=== PATIENT | male | born 1945 | race Caucasian/White ===

== ENCOUNTER → 2023-08-04 11:18 | Outpatient (REF) | payer OTHER, MEDICARE, SELFPAY | LOC: RAD 11:18 | PROVIDERS: ATTENDING PHYSICIAN Nurse Practitioner Family; FAMILY PHYSICIAN Internal Medicine Geriatric Medicine | DX: M54.50 Low back pain, unspecified (principal) | CPT/HCPCS: 72072; 72110 ==

== ENCOUNTER → 2024-08-08 17:40 | Outpatient (REF) | payer MEDICARE, SELFPAY | LOC: MRI 3T 17:40 | PROVIDERS: ATTENDING PHYSICIAN Physical Medicine & Rehabilitation; FAMILY PHYSICIAN Internal Medicine Geriatric Medicine | DX: M54.16 Radiculopathy, lumbar region (principal) | CPT/HCPCS: 72148 ==

== ENCOUNTER 2025-01-23 15:55 | Emergency (ER) | payer MEDICARE, SELFPAY ==
[2025-01-23 16:00] VITALS: BP 140/58
[2025-01-23 16:01] VITALS: BP 140/58; BMI 25.6
[2025-01-23 17:00] VITALS: BP 144/62
--- NOTE | 2025-01-23 17:43 | ED.GENMED ---
History of Present Illness
General
Chief Complaint: Head Injury
Time Seen by Provider: 01/23/25 16:18
History of Present Illness
History of Present Illness:
79-year-old male with history of A-fib on Eliquis, hypertension, hyperlipidemia presenting after a fall. Patient reports prior to arrival he was feeling off balance and fell backward, struck his head. Patient had a similar issue on Sunday, fell,
struck his head, was seen at [facility] and had 4 eliane placed. Reports that this has been ongoing for the past several months with unclear etiology. Patient is supposed to be walking with a walker, did not have a walker prior to arrival,
which also contributed to the fall. Denies chest pain or difficulty breathing. Denies fever. Denies weakness or numbness to his extremities. Tetanus status is unknown. Notes unremarkable workup on Sunday at [facility]. He is supposed to
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 Denies additional medical complaints
Past History
Past History
ED Past Medical History: Arrthythmia (Atrial fibrillation)
ED Past Surgical History: Orthopedic (Right knee replacement)
Social History
Tobacco: Former smoker
Phy Exam
Physical Exam
Physical Exam:
General: Well-appearing, no clinical signs of dehydration, nontoxic and in no acute distress
Head; posterior midline hematoma with skin avulsion, bleeding controlled
HEENT: protecting airway
Neck: appears supple
CV: Normal heart rate, regular rhythm
Resp: No accessory muscle use, no increased work of breathing, lungs clear to auscultation bilaterally
Abd: Soft and non-distended, no tenderness to palpation
Extremities: No deformities, no swelling. Small abrasion to the left olecranon with range of motion intact
Neuro: alert, no focal neurologic deficit
: deferred
Rectal: deferred
Psych: Normal affect
Skin: Intact
Course
Orders/Labs/Results
Orders:
Orders
01/23/25 16:[address] [CT Head W/o Iv Contrast] Urgent
Comment:
Reason For Exam: head injury on eliquis
01/23/25 17:11
Electrocardiogram (*1) Stat
Reason for Study: Other
Other Reason for Exam: chest pain
EKG- Treatment ONCE
01/23/25 17:22
Complete Blood Count/With Diff Urgent
Comprehensive Metabolic Panel Urgent
Troponin I Urgent
01/23/25 17:42
Orthostatic VS- Treatment ONCE
01/23/25 17:43
Tetanus/Diphth/Acelpertussis [Adacel] 0.5 ml IM .ONCE ONE
01/23/25 19:55
Acetaminophen [Tylenol] 1,000 mg PO NOW STA
Abnormal Lab Results
01/23/25
17:22
RBC 3.59 L 10^6/uL
(4.70-6.10)
Hgb 12.5 L g/dL
(13.0-18.0)
Hct 35.7 L %
(39.0-52.0)
MCV 99.4 H fL
(80.0-94.0)
MCH 34.8 H pg
(27.0-31.0)
MPV 11.9 H fL
(7.4-10.4)
Abs Immat Gran (auto) 0.1 H 10^3/uL
(0-0.05)
Absolute Lymphs (auto) 0.9 L 10^3/uL
(1.2-3.4)
Absolute Monos (auto) 0.8 H 10^3/uL
(0.1-0.6)
Immature Gran % 1.3 H %
(0-0.5)
Lymphocytes % 11.9 L %
(20.5-51.1)
Monocytes % 10.8 H %
(1.7-9.3)
Chloride 108 H mmol/L
(98-107)
BUN 41 H mg/dl
(9-20)
ALT 74 H U/L
(0-50)
01/23/25 17:22
01/23/25 17:22
Vital Signs
Initial and Last Documented VS:
Initial Vital Signs
BP Pulse Ox
140/58 96
01/23/25 16:00 01/23/25 16:00
Last Documented Vital Signs
Temp Pulse Resp BP Pulse Ox
99 F 83 16 166/70 97
01/23/25 16:01 01/23/25 16:01 01/23/25 16:01 01/23/25 18:00 01/23/25 18:30
MDM/Problems Addressed
MDM/Problems Addressed:
79-year-old male with history of A-fib presenting to the emergency department for fall. Vital signs on arrival are normal.
On exam, patient is resting comfortably, no acute distress. Arrives with obvious head trauma. Given anticoagulation status, plan for CT head imaging. No midline spinal tenderness. Patient also has evidence of eliane to the left parietal scalp,
intact. No obvious laceration on today's injury. Wound was appropriately cleaned and irrigated, no gaping to the wound. Regarding mechanism of fall, unclear. Notes that he was off balance and then fell backward. This has been an ongoing issue
of unclear etiology. No present focal neurologic deficits. Will plan for EKG to ensure no obvious arrhythmia. Will screen with laboratory analysis to ensure normal electrolyte panel. Will also obtain orthostatics.
19:50 - Patient's labs are unremarkable and CT brain without acute intracranial abnormality. Orthostatics are negative. At this time feel stable for discharge, however with outpatient cardiology follow-up as scheduled next week. Advised that
patient always walk with a walker going forward. Return precautions discussed and patient verbalized understanding
*Pulse Oximetry
SaO2: 97
Oxygen Mode of Delivery: Room air
Patient hypoxic: no
*EKG
Interpreted by ED Provider?: Yes
EKG Intrepretation Date: 01/23/25
Interpretation: normal
Comparison EKG: no changes (08/05/14)
Heart Rate: 79
Rate: normal
Rhythm: sinus
[place]: normal axis
Interval: normal interval
QRS Pattern: normal QRS
Ischemia: no ischemia
*Critical Care Note
Total Time (30-74mins, 75-104mins- exclusive of procedures): Not Applicable
ED Attending Note
-
Portions of this chart may have been created with voice recognition software.� Occasional wrong word or��sound alike� substitutions may have occurred due to the inherent limitations of voice recognition software.
Discharge Plan
Departure
Patient Disposition: Home (Routine Discharge)
Date of Disposition: 01/23/25
Time of Disposition: 19:56
Patient with high blood pressure during this ER visit?: Yes
Condition: Good
Discharge Problem:
Contusion of scalp, Fall, Dizziness
Instructions: Contusion (DC), Minor Head Injury (DC), BLOOD PRESSURE
Prescriptions:
No Action
multivitamin [Daily Multiple] 1 EACH tablet
1 ea PO DAILY
calcium carbonate [calcium] 500 MG tablet
500 mg PO DAILY
magnesium 250 MG tablet
250 mg PO DAILY
methylphenidate HCl 36 MG tablet extended release 24hr
18 mg PO DAILY
rosuvastatin 20 MG tablet
20 mg PO DAILY
coenzyme Q10 [Co Q-10] 200 MG capsule
200 mg PO DAILY
saw palmetto 450 MG capsule
450 mg PO DAILY
omega-3 fatty acids-fish oil 1 EACH capsule
1,000 mg PO DAILY
metoprolol succinate 50 MG tablet extended release 24 hr
50 mg PO DAILY
cyanocobalamin (vitamin B-12) 1,000 MCG tablet
1,000 mcg PO DAILY
lisinopril 5 MG tablet
5 mg PO DAILY
sennosides [senna] 1 TABLET tablet
2 tab PO BID Qty: 0 0RF
oxycodone 5 MG tablet
1 - 2 tab PO Q4HPRN PRN (Reason: pain) Qty: 90 0RF
warfarin [Jantoven] 5 MG tablet
5 mg PO DAILY Qty: 50 0RF
Rx Instructions:
take 7.5 mg 11/2 tab tonight then as per Dr Cool
apixaban [Eliquis] 5 MG tablet
5 mg PO BID Qty: 0 0RF
Rx Instructions:
do not take till ok by Dr Cool
oxycodone-acetaminophen 5 MG/325 MG tablet
1 tab PO Q4HPRN PRN (Reason: Pain) Qty: 10 0RF
Referrals:
UNKNOWN - PT DOES,NOT KNOW [Family Provider]
Activity Restrictions/Additional Instructions:
You were seen in the emergency department for dizziness and fall
You were found to have reassuring laboratory analysis, CT imaging of your head, EKG, and vital signs. We recommend that you follow-up with a petroleum terminal plant operator given recurrent symptoms. Your tetanus was updated during today's visit.
Please follow-up closely with your primary care physician.
Return to the emergency department for any worsening of your symptoms, or any development of chest pain, difficulty breathing, abdominal pain with persistent vomiting and inability to tolerate food or liquid by mouth (concern for dehydration),
weakness, headache or confusion, fever greater than 100.4, or any additional symptoms that are concerning to you.
Thank you for choosing [facility].
Interventions
Interventions:
*Risk Screen - Suicide Last Done: 01/23/25 16:01
*General Assessment Last Done: 01/23/25 16:01
*Neglect/Abuse Screening Last Done: 01/23/25 16:01
*ED- Fall Risk Assessment Last Done: 01/23/25 16:01
*ED COVID-19 Vaccine History Last Done: 01/23/25 16:01
ED- Neurological Assessment Last Done: 01/23/25 16:01
ED-Skin Assessment Last Done: 01/23/25 16:01
Discharge Date and Time
Print Language: PORTUGUESE
[2025-01-23 17:46] LABS: Hematocrit 35.7 % (39.0-52.0); Hemoglobin 12.5 g/dL (13.0-18.0); Mean Corp Hgb Conc. 35.0 g/dL (33.0-37.0); Mean Corpuscular Volume 99.4 fL (80.0-94.0); Nucleated Red Blood Cells % 0 % (-); Platelet Count 137 10^3/uL (130-400); Red Cell Dist. Width 13.9 % (11.5-14.5)
[2025-01-23] MEDS: ADACEL 0.5 ML IM (17:49)
[2025-01-23 17:58] LABS: ALT (SGPT) 74 U/L (0-50); AST (SGOT) 38 U/L (17-59); Albumin 3.9 g/dl (3.5-5.0); Alkaline Phosphatase 60 U/L (38-126); Blood Urea Nitrogen 41 mg/dl (9-20); Calcium 9.4 mg/dl (8.4-10.2); Carbon Dioxide 26 mmol/L (22-30); Chloride 108 mmol/L (98-107); Estimated Creatinine Clearance 68 ml/min; Glucose 99 mg/dl (70-99); Potassium 4.6 mmol/L (3.5-5.1); Sodium 138 mmol/L (135-145); Total Protein 6.3 g/dl (6.3-8.2); eGFR > 60.00
[2025-01-23 18:00] VITALS: BP 166/70
[2025-01-23 18:11] LABS: Troponin I < 0.012 ng/ml
[2025-01-23 19:49] VITALS: BP 158/67; BP 169/76; BP 179/73; PULSE 100; PULSE 102; PULSE 90
[2025-01-23] MEDS: TYLENOL 1000 MG PO (20:08)
== END 2025-01-23 20:19 | disposition home or self-care (01) ==
LOC: EMR 15:55
PROVIDERS: EMERGENCY PHYSICIAN Student in an Organized Health Care Education/Training Program
DX: S00.03XA Contusion of scalp, initial encounter (principal); S00.81XA Abrasion of other part of head, initial encounter; W01.198A Fall on same level from slipping, tripping and stumbling with subsequent striking against other object, initial encounter; I10 Essential (primary) hypertension; E78.5 Hyperlipidemia, unspecified; I48.91 Unspecified atrial fibrillation; Z87.891 Personal history of nicotine dependence; Z79.01 Long term (current) use of anticoagulants; Z23 Encounter for immunization
CPT/HCPCS: 99285; 90471; 70450; 80053; 84484; 85025; 90715; 93005

== ENCOUNTER 2025-04-15 14:07 | Inpatient (IN) | payer MEDICARE, SELFPAY ==
[2025-04-15] VITALS (14 sets, daily range): BP systolic 82–154; BP diastolic 44–130; PULSE 91–104; BMI 26.9
--- NOTE | 2025-04-15 07:41 | ED.GENMED ---
History of Present Illness
General
Chief Complaint: Fall
Source: patient, records and ambulance crew
Exam Limitations: none
Time Seen by Provider: 04/15/25 07:33
Nursing documentation reviewed up to this point in time: agreed with
History of Present Illness
History of Present Illness:
79-year-old male with history of A-fib on Eliquis, hyperlipidemia who presents to the ER from home where he lives with his for evaluation after a fall. Patient says that he got up to go to the bathroom this morning and lost his balance and
fell. He has a history of frequent falls/ambulatory dysfunction. He uses a walker and says that he was using his walker this morning but still fell down. He says he landed on his right shoulder and has pain in his right shoulder/arm since. He
does not believe that he hit his head and says he did not lose consciousness. He was incontinent because he did not make it to the bathroom. He denies any headache or neck pain. Denies any back pain. Denies any pain in the ribs. Denies any
abdominal pain. He denies any pain in his extremities. Was in his normal state of health prior. Of note he did have his right shoulder replaced in 2011.
Past History
Past History
ED Past Medical History: Arrthythmia (Atrial fibrillation)
ED Past Surgical History: Orthopedic (Right knee replacement)
Social History
Tobacco: Former smoker
Review of Systems
Review of Systems
All Other Systems: ROS reviewed and negative except as documented in HPI and ROS
Constitutional: Denies fever
Respiratory: Denies trouble breathing
Cardiac: Denies chest pain
ABD/GI: Denies abdominal pain or nausea
: Denies flank pain
Musculoskeletal: Reports joint pain; Denies neck pain or back pain
Neurological: Denies dizzy or headache
Phy Exam
Physical Exam
Physical Exam:
General: Awake, alert, oriented x3; appears uncomfortable
Head: Normocephalic, atraumatic
Eyes: Conjunctiva normal, EOMI
Throat: Airway intact, handling secretions
Neck: Trachea midline, no cervical spine tenderness
Lungs: Breathing comfortably with no tachypnea or hypoxia
Heart: Tachycardia with regular rhythm; no chest wall tenderness, no bruising or crepitus
Abd: Soft, non distended, nontender
Back: No signs of trauma to the back or flank and no tenderness of the thoracic or lumbar spine
Neuro: Grossly intact�specifically motor and sensory intact distal right upper extremity
Skin: Old appearing abrasions/scabs to the legs bilaterally
Extremities: Patient has swelling and tenderness over the anterior right shoulder and upper arm on the right; no tenderness of the right elbow or forearm/wrist and a strong right radial pulse; he has some old abrasions on the legs but no signs of
acute trauma to the legs, last full range of motion without pain
Scores
Heart Failure Risk
Heart Failure Risk Score: Not Applicable
Heart Score for Chest Pain Patients
STEMI patient?: Not applicable
Withdrawal Assessment of Alcohol
Withdrawal Assessment Completed?: Not applicable
Course
Orders/Labs/Results
Orders:
Orders
04/15/25 07:40
CT Head W/o Iv Contrast Urgent
Comment:
Reason For Exam: fall on eliquis
CR Humerus - Right Min 2 View* Urgent
Comment:
Reason For Exam: right arm/shoulder pain s/p fall
CR Shoulder - Right Min 2 View Urgent
Comment:
Reason For Exam: right shoulder pain s/p fall
04/15/25 07:41
Electrocardiogram (*1) Urgent
Reason for Study: PreOp
CT Cervical Spine W/o Iv Contr Urgent
Comment:
Reason For Exam: fall on eliquis
EKG- Treatment ONCE
Morphine Sulfate 4 mg IV NOW STA
04/15/25 07:46
Basic Metabolic Panel Urgent
Complete Blood Count/With Diff Urgent
04/15/25 08:34
HYDROmorphone [Dilaudid] 0.5 mg IV NOW STA
04/15/25 08:50
CT Upper Ext W/o Iv Cont Rt Urgent
Comment:
Reason For Exam: pre-op planning, right humerus fx
04/15/25 09:16
Case Management Consult ONCE
Case Management Consult: Snf Placement
Abnormal Lab Results
04/15/25
07:46
RBC 4.52 L 10^6/uL
(4.70-6.10)
MCV 98.5 H fL
(80.0-94.0)
MCH 32.3 H pg
(27.0-31.0)
MCHC 32.8 L g/dL
(33.0-37.0)
MPV 11.5 H fL
(7.4-10.4)
Abs Immat Gran (auto) 0.1 H 10^3/uL
(0-0.05)
Absolute Monos (auto) 0.9 H 10^3/uL
(0.1-0.6)
Immature Gran % 0.6 H %
(0-0.5)
Lymphocytes % 17.1 L %
(20.5-51.1)
Monocytes % 10.2 H %
(1.7-9.3)
BUN 26 H mg/dl
(9-20)
Glucose 107 H mg/dl
(70-99)
04/15/25 07:46
04/15/25 07:46
Vital Signs
Initial and Last Documented VS:
Initial Vital Signs
Pulse Ox
96
04/15/25 07:32
Last Documented Vital Signs
Temp Pulse Resp BP Pulse Ox
36.6 C 117 15 149/60 97
04/15/25 07:34 04/15/25 09:30 04/15/25 09:30 04/15/25 10:00 04/15/25 09:54
Procedures
Splinting/Sling Placement
Right Upper Arm:
Procedure completed by: Dickson Quiroga MD
Pre-splint extermity exam: neurovascular intact
Type of sling: sling fitted
Normal distal neurovascular exam?: Yes
MDM/Problems Addressed
Differential Diagnosis Includes:
Shoulder pain: Fracture, dislocation, contusion/sprain, AC separation
MDM/Problems Addressed:
79-year-old male with history of A-fib on Eliquis and frequent falls presents after losing his balance and falling on his way to the bathroom this morning. Injured his right shoulder. No other serious injuries noted. Given his age and
anticoagulation will check CT head and cervical spine. Will check x-ray of the right shoulder and upper arm. Will treat pain. He did have some tachycardia suspect pain related but will check EKG and basic labs. Reassess after the above.
CT head and cervical spine reviewed initially by me showed no acute abnormalities�final report pending. X-ray of the shoulder/humerus shows a periprosthetic fracture. He had his shoulder replaced by Dr. Cool in 2011. Case discussed with
orthopedist for recommendations. Currently lives independently in the community and is dependent on a walker for ambulation, already has a history of frequent falls. Will likely need admission for rehab at minimum.
Discussed with orthopedist: Will need to order implants for surgical repair and so surgery will likely be delayed for this reason, likely closer to next week. Requesting follow-up CT of the extremity. Recommend placing in a sling for now. I had a
long discussion with the patient; he is very dependent on his walker and clearly cannot use his arm to lead sales consultant the walker at this point. He already has a history of frequent falls and is on Eliquis and I do not think that discharge back to independent
living will be safe and he is concerned about this as well. We spoke about admission to the hospitalist with the understanding that surgery likely would not occur until next week versus discharge to snf/rehab--will discuss with case
management to evaluate regarding feasibility of placement in SNF with disposition pending their assessment.
Patient still having a lot of pain despite 2 rounds of IV pain meds. I think at this point until his pain is acutely controlled he is not a good candidate for discharge to SNF. Will admit to the hospitalist for pain management and orthopedics
assessment. Discussed with hospitalist for admission.
Chronic conditions affecting care:
A-fib on Eliquis complicates fall
*Radiology
Radiology exam reviewed: preliminary read by ED provider and radiology read reviewed
*Pulse Oximetry
SaO2: 97
Oxygen Mode of Delivery: Room air
Patient hypoxic: no (97%)
*EKG
Interpreted by ED Provider?: Yes
Heart Rate: 111
Rate: tachycardiac
Rhythm: sinus tachycardia
[place]: normal axis
Interval: normal interval
QRS Pattern: normal QRS
Ischemia: non-specific ST changes
*Critical Care Note
Total Time (30-74mins, 75-104mins- exclusive of procedures): Not Applicable
Data Reviewed
Review of Other/Old Records Reveals: Labs and Records
Source: patient and records
Patient Management
Discussion with other providers: Hospitalist (Discussed with hospitalist) and Guest Request Runner (Discussed with orthopedist)
Escalation/DeEscalation of care consider admission/obs:
Admission indicated
ED Attending Note
-
Portions of this chart may have been created with voice recognition software.� Occasional wrong word or��sound alike� substitutions may have occurred due to the inherent limitations of voice recognition software.
Discharge Plan
Departure
Patient Disposition: Admit
Date of Disposition: 04/15/25
Time of Disposition: 10:19
Admit to doctor: Nelson
Presentation/result/management discussed w/ accepting MD/DO: Hospitalist
Patient with high blood pressure during this ER visit?: Yes
Discharge Problem:
Fracture of right humerus
Prescriptions:
No Action
losartan 50 mg Tablet
50 mg PO DAILY
pravastatin 40 mg Tablet
40 mg PO HS
donepezil 10 mg Tablet
10 mg PO HS
sertraline 100 mg Tablet
100 mg PO DAILY
ferrous sulfate 325 mg (65 mg iron) Tablet
325 mg PO DAILY
midodrine 2.5 mg Tablet
2.5 mg PO TID
metoprolol succinate [Toprol XL] 25 mg Tablet Extended Release 24 Hr
25 mg PO DAILY
finasteride 5 mg Tablet
5 mg PO DAILY
mirabegron [Myrbetriq] 50 mg Tablet Extended Release 24 Hr
50 mg PO DAILY
Eliquis 5 MG tablet
5 mg PO BID
Referrals:
Ike Mccain MD [Family Provider, Internal Medicine]
Interventions
Interventions:
*Risk Screen - Suicide Last Done: 04/15/25 07:34
*General Assessment Last Done: 04/15/25 07:34
*Neglect/Abuse Screening Last Done: 04/15/25 07:34
*ED- Fall Risk Assessment Last Done: 04/15/25 07:34
*ED COVID-19 Vaccine History Last Done: 04/15/25 07:40
*ED Influenza Vaccine History Last Done: 04/15/25 07:40
ED-Musculoskeletal Assessment Last Done: 04/15/25 07:40
ED- Neurological Assessment Last Done: 04/15/25 07:34
ED-Skin Assessment Last Done: 04/15/25 07:34
Discharge Date and Time
Print Language: OCCITAN
[2025-04-15] MEDS: MORPHINE SULFATE 4 MG IV (07:49)
[2025-04-15 08:08] LABS: Hematocrit 44.5 % (39.0-52.0); Hemoglobin 14.6 g/dL (13.0-18.0); Mean Corp Hgb Conc. 32.8 g/dL (33.0-37.0); Mean Corpuscular Volume 98.5 fL (80.0-94.0); Nucleated Red Blood Cells % 0 % (-); Platelet Count 169 10^3/uL (130-400); Red Cell Dist. Width 13.4 % (11.5-14.5)
[2025-04-15 08:33] LABS: Blood Urea Nitrogen 26 mg/dl (9-20); Calcium 9.5 mg/dl (8.4-10.2); Carbon Dioxide 26 mmol/L (22-30); Chloride 104 mmol/L (98-107); Estimated Creatinine Clearance 76 ml/min; Glucose 107 mg/dl (70-99); Sodium 140 mmol/L (135-145); eGFR > 60.00
[2025-04-15] MEDS: DILAUDID 0.5 MG IV ×2 (08:40→11:19)
--- NOTE | 2025-04-15 11:33 | CM ---
Addendum entered by Shanelle Del Rio 04/15/25 13:59:
Pt planned for admission
Original Note:
ED CM consult for dc planning
Bedside meeting with pt ([facility])
Pt resides with his spouse/Luh in a 2SH with 3STE
Pt sleeps on 1st floor and full flight to full bath on 2nd floor
Pt notes independence with use of a WW, drives+
He notes his spouse is independent at home
PCP- Ike Mccain
Rx- [facility]
Pt s/p fall at home and w/ R shoulder fracture
Will need follow up surgery with ortho for repair
Pt requested spouse be contacted to provide update and discuss planning
He declined call to son at this time noting he does not want to bother him right now
VM left for spouse per pt request and awaiting call back- pt in agreement with outreach to son if spouse does not respond
SNF list and private duty list bedside for further review
Pt is not eligible for [employer] waiver and without Medicare qualifying stay
Discharge Disposition- SNF vs home with private duty care
--- NOTE | 2025-04-15 12:33 | CON.ORTHO ---
Consultation
-
Date/Time Consultation Requested: 04/15/2025 @ Unknown Time
Date/Time Consultation Performed: 04/15/2025 @ 12:00 PM
Requesting Provider: Dr. Dickson Quiroga MD
Performing Provider: Haile Flowers PA-C for Dr. Neal Reynolds MD
Reason for Consultation: Right Periprosthetic Proximal Humerus Fracture
Consultation - Orthopedics
History
Orthopedic Surgery Note
CC: Right Shoulder Pain s/p Mechanical Fall 04/15/2025
HPI: The patient is a 79-year-old [id number] male with a past medical history significant for A-fib on Eliquis 5mg BID (last dose 04/14/2025 @ 10PM) and Hyperlipidemia presenting to [facility] ED after sustaining mechanical fall earlier this
morning. The patient reports that he got up to go to the bathroom this morning and lost his balance and unfortunately fell onto his right shoulder. He has a history of frequent falls/ambulatory dysfunction. He uses a walker for ambulatory
assistance. He underwent right shoulder hemiarthroplasty with Dr. Cool in 2011. He reports that his shoulder was doing well without problems until this injury. He reports pain localized to his right shoulder/humerus. He denies any pain
elsewhere. He denies any loss of consciousness. He denies any paresthesias. Orthopedic Surgery was consulted for treatment recommendations moving forward.
PMH/PSH: A-fib on Eliquis 5mg BID (last dose 04/14/2025 @ 10PM) and Hyperlipidemia.
Medications: Reviewed.
Family History: Family history was reviewed. Noncontributory.
Social history: Former smoker, no illicit drugs.
Exam
General appearance: Pleasant. No acute distress.
Head: Normocephalic/atraumatic
Nose: No lesions or discharge.
Skin: No obvious rashes or open wounds
Lungs: No audible wheezing, no cough or sputum production
Musculoskeletal:
RUE:
Physical examination of the right upper extremity reveals a well healed surgical incision over the axillary crease. There is no erythema, warmth, or ecchymosis at present. Skin is intact. There is generalized edema about the right shoulder and
proximal humerus. (+) Tenderness to palpation over the proximal humerus. There is no reproducible tenderness to palpation about the right elbow, forearm, or wrist. Digital range of motion is intact. Shoulder ROM deferred secondary to known
periprosthetic fracture. Capillary refill is less than 2 seconds. Sensation is intact to light touch distally.
Imaging:
X-rays:
CR Humerus - RIGHT Min 2 View*; CR Shoulder - RIGHT Min 2 View was obtained at [facility] on 04/15/2025 and was made available for my review today. Findings: Right shoulder prosthesis is present. There is a comminuted fracture of the
right proximal humerus, at the level of the distal aspect of the femoral prosthetic stem. There is approximately 1 shaft width lateral displacement of the distal fracture fragment as well as mild lateral angulation of the fracture apex. There is
also slightly less than 1 shaft width posterior displacement of the distal fracture fragment. No evidence for fracture of the visualized ribs. Moderate degenerative change of the acromioclavicular joint with no significant displacement.
Coracoclavicular distance appears within normal limits. Impression: Fracture of the proximal right humerus as described
CT Upper Ext W/o Iv Cont RT was obtained at [facility] on 04/15/2025 and was made available for my review today. Impression: Right shoulder prosthesis is present with resultant streak artifact. Comminuted fracture of the proximal right
humerus, adjacent to the distal aspect of the stem of the humeral prosthetic component.
Assessment: 79-year-old male with a RIGHT periprosthetic proximal humerus fracture. History of A-fib on Eliquis (last dose 04/14/2025 at 10 PM).
Plan: Unfortunately, the patient has sustained a right periprosthetic proximal humerus fracture. Treatment options, including both nonoperative and operative approaches were discussed with the patient and his family today. After thorough
discussion, the patient has elected to proceed with surgical treatment. The risks, benefits, potential complications, and expected post-operative course were reviewed. Will plan for ORIF RIGHT periprosthetic proximal humerus fracture with
hemiarthroplasty vs. reverse total shoulder arthroplasty with explant under the direction of Dr. Reynolds on Sunday04/22/2025. Surgical and blood consents were obtained and scanned into the patient's chart. Case posted with the OR waterfront director.
Ancef, Iodine irrigation and TXA irrigation on-call to OR. The patient is to remain NPO pMN Sunday04/21/2025. Remain NWB to RUE with sling immobilization. Ice therapy, elevation, and digital range of motion as tolerated for edema control. Type
and screen will be requested closer to date of surgery. Hgb today 14.6. Please hold Eliquis 3 days prior to surgery. DVT prophylaxis per primary team. Pain control per primary team. Orthopedic surgery will continue to follow along.
Allergies / Home Medications
Allergy/AdvReac Type Severity Reaction Status Date / Time
No Known Allergies Allergy Verified 10/27/14 13:54
�Medication �Instructions �Recorded
apixaban 5 mg tablet (Eliquis) 5 mg PO BID Blood Clot 04/15/25
Prevention/Tx
donepezil 10 mg tablet 10 mg PO HS Mental Health/Anxiety 04/15/25
ferrous sulfate 325 mg (65 mg 325 mg PO DAILY Supplement 04/15/25
iron) tablet
finasteride 5 mg tablet 5 mg PO DAILY Urinary Issue 04/15/25
losartan 50 mg tablet 50 mg PO DAILY Blood Pressure 04/15/25
metoprolol succinate 25 mg 25 mg PO DAILY Heart 04/15/25
tablet,extended release 24 hr Disease/Condition
(Toprol XL)
midodrine 2.5 mg tablet 2.5 mg PO TID 04/15/25
mirabegron 50 mg tablet,extended 50 mg PO DAILY Urinary Issue 04/15/25
release 24 hr (Myrbetriq)
pravastatin 40 mg tablet 40 mg PO HS High Cholesterol 04/15/25
sertraline 100 mg tablet 100 mg PO DAILY Mental 04/15/25
Health/Anxiety
Vital Signs / Lab Results
Temp Pulse Resp BP Pulse Ox
97.9 F 117 15 103/61 93
04/15/25 07:34 04/15/25 09:30 04/15/25 09:30 04/15/25 12:00 04/15/25 12:00
04/15/25 07:46
04/15/25 07:46
--- NOTE | 2025-04-15 13:52 | HPS.HSE ---
Family Physician
-
Family Physician: Ike Mccain
Chief Complaint
-
Fall and right humerus complicated periprosthetic fracture.
History of Present Illness
Patient lately having increased trouble with ambulatory dysfunction. He has shuffling gait and has long strides predisposing him to falls. He apparently had 11 falls this year so far. He is in the process of seeing a movement disorder specialist.
No given diagnosis of Parkinson's disease. He does have some resting tremors in the arms lately per daughter. Because of the falls and gait disturbance he has walkers and every room in his house.
He lives with his .
He has nocturia issues, he out of the bed the night night lost balance and fell down. EMS people came to check on him , no injuries, was helped back to the bed. He got up again to go to the bathroom and he lost balance hitting the right side of
the shoulder. His x-ray of the shoulder shows right humerus complicated periprosthetic fracture. He likely had no injuries with prior falls.
He is admitted for pain control and surgical correction of his fracture.
He also has orthostatic dizziness for which he is on midodrine.
He has history of atrial fibrillation and sees [facility] cardiology. On beta-jaycee and Eliquis. Daughter is questioning about Eliquis with frequent falls.
Denies prior history of CAD, diabetes mellitus, chronic kidney disease.
Poor functional status because of his ambulatory dysfunction and dizziness.
He is on finasteride and mirabegron for urinary issues.
According to the daughter he also has vascular dementia and on donezepil. No sundowning or agitation or issues.
He recently moved to this area.
Medical History
Past Medical History
Past Medical History: Reports Arrhythmia (Atrial fibrillation), Dementia, HTN and Hypercholesterolemia
Past Surgical History: Reports Orthopedic (Bilateral shoulder bilateral knee replacement)
Social History
Tobacco: Non-smoker
Alcohol: None
Drug: None
Personal:
Living: With Family
Family History
Family History: Not pertinent
Allergies / Home Medications
Allergies reflects when Allergies were last updated in [employer].
Home Medications with original date entered in [employer]
Allergy/Medication List:
Allergies
Allergy/AdvReac Type Severity Reaction Status Date / Time
No Known Allergies Allergy Verified 10/27/14 13:54
Home Medications
apixaban 5 mg tablet (Eliquis) 5 mg PO BID Blood Clot Prevention/Tx 04/15/25
donepezil 10 mg tablet 10 mg PO HS Mental Health/Anxiety 04/15/25
ferrous sulfate 325 mg (65 mg iron) tablet 325 mg PO DAILY Supplement 04/15/25
finasteride 5 mg tablet 5 mg PO DAILY Urinary Issue 04/15/25
losartan 50 mg tablet 50 mg PO DAILY Blood Pressure 04/15/25
metoprolol succinate 25 mg tablet,extended release 24 hr (Toprol XL) 25 mg PO DAILY Heart Disease/Condition 04/15/25
midodrine 2.5 mg tablet 2.5 mg PO TID 04/15/25
mirabegron 50 mg tablet,extended release 24 hr (Myrbetriq) 50 mg PO DAILY Urinary Issue 04/15/25
pravastatin 40 mg tablet 40 mg PO HS High Cholesterol 04/15/25
sertraline 100 mg tablet 100 mg PO DAILY Mental Health/Anxiety 04/15/25
Review of Systems
-
A 12 point ROS was completed and negative except as noted: Yes
Physical Exam
Vital Signs
Vital Signs
Temp Pulse Resp BP Pulse Ox
97.9 F 117 15 113/61 96
04/15/25 07:34 04/15/25 09:30 04/15/25 09:30 04/15/25 13:00 04/15/25 13:30
Physical Exam
General: Comfortable
Respiratory: Clear and Non Labored Respirations; No Accessory Resp Muscle Use
Cardiac: S1/S2, Regular Rhythm and Tachycardia
GI: Soft, Non Tender, Non Distended and Normal Bowel Sounds
Musculoskeletal: No Edema
Neuro: AO x 3
Psych: Calm; No Confused (hard of hearing)
Laboratory Results
-
04/15/25 07:46
04/15/25 07:46
Laboratory Results
Total Bilirubin Cancelled 04/15/25 07:46
AST Cancelled 04/15/25 07:46
ALT Cancelled 04/15/25 07:46
Alkaline Phosphatase Cancelled 04/15/25 07:46
Data Reviewed
-
Diagnostic Radiology: Report Reviewed by me (X-ray of the right shoulder)
Lab Data: Labs Reviewed by me
Impression/Plan
-
Mechanical fall leading to right humerus complicated periprosthetic fracture.
Admit to hospital for pain control and surgical correction. Orthopedic involved-Will need to wait for the hardware to arrive for surgical correction.
Start on pain regimen. Leave the right arm in the sling. PT OT eval.
Frequent falls secondary to bladder dysfunction-ongoing movement disorder neurology evaluation. Continue with PT OT
Orthostatic hypotension-check orthostatic BP reading and adjust midodrine as needed. Check a TSH and cortisol in AM.
History of dementia on donepezil-watch for .
Paroxysmal atrial fibrillation-patient in sinus rhythm but tachycardic. Suspect may be due to pain. EKG with nonspecific ST-T changes but no acute ST-T changes. Follow on telemetry. Continue the beta-jaycee. With frequent falls I suspect he is
not a candidate for Eliquis going forward. Hold for now. Obtain cardiology consult for preop cardiac eval.
Hypertension-continue with losartan with parameters
BPH-continue finasteride
Full code
Discussed with daughter at bedside.
Portions of this chart may have been created with voice recognition software. Occasional wrong word or 'sound alike' substitutions may have occurred due to the inherent limitations of voice recognition software.
--- NOTE | 2025-04-15 15:19 | CON.CAR ---
Addendum entered and electronically signed by Haile Avila DO 04/15/25 17:12:
I saw and examined the patient.
The Assistant Plant Control Operator's note was reviewed and I agree with the note.
Comment:
Plan:
Eval for preop risk assessment prior to hip fracture repair.
Await records from outside primary assistant oceanographer
Check echo
He remains in sinus with hx of PAFib.
he has had multiple falls and discussions ongoing with family regarding his bleeding risk with recurrent falls. He has an upcoming appointment with the neurologic movement specialist.
If he has recurrent atrial fibrillation while hospitalized, could reconsider anticoagulation at that time. Continue to hold Eliquis. If he requires anticoagulation could consider IV heparin.
His surgery is delayed pending obtaining necessary medical supplies needed for his surgery.
Pending echo findings he is currently moderate risk based on his comorbidities and need for urgent surgery.
Discussed with family at bedside.
Will continue to follow.
HPI: Patient came to the ER after a fall at home and is being admitted with right humerus periprosthetic fracture and cardiology is consulted for preoperative cardiovascular risk stratification. Patient and daughter help with HPI, patient awoke to
use the bathroom at about 0400 this morning and fell in his bedroom onto a carpeted surface. The patient's called the nonemergency number and paramedics were able to get the patient back into bed. Later this today the patient was feeling
better and got up to use the bathroom and once in the bathroom he fell again landing on his right shoulder and fell hitting a hard tile floor. Patient is being admitted with a right humerus periprosthetic fracture and will require operative repair
that is currently scheduled for 04/22/2025. Patient's daughter reports he has had 11 falls, about 1 a month over the last year. Patient saw a neurologist and has vascular dementia, but he has also had some features concerning for Parkinson's
disease. Patient is waiting for an evaluation by a neurologist that is a movement specialist coming up in May. Patient does not complete vigorous activity, he denies any chest pain or SOB with walking around his home, he never has any resting
symptoms. Patient follows with a assistant oceanographer out of [facility] and he thinks that he saw them within the last few months, I have called for records. Patient with known paroxysmal A-fib and he is reportedly asymptomatic with this.
Original Note:
Consultation
Consultation Request
Date/Time Consultation Requested: 04/15/2025
Date/Time Consultation Performed: 04/15/2025
Requesting Provider: Dr. Rizvi
Performing Provider: Dr. Avila
Reason for Consultation: Preoperative cardiovascular risk stratification
Medical History
-
History of Present Illness:
Patient came to the ER after a fall at home and is being admitted with right humerus periprosthetic fracture and cardiology is consulted for preoperative cardiovascular risk stratification. Patient and daughter help with HPI, patient awoke to use
the bathroom at about 0400 this morning and fell in his bedroom onto a carpeted surface. The patient's called the nonemergency number and paramedics were able to get the patient back into bed. Later this today the patient was feeling better
and got up to use the bathroom and once in the bathroom he fell again landing on his right shoulder and fell hitting a hard tile floor. Patient is being admitted with a right humerus periprosthetic fracture and will require operative repair that is
currently scheduled for 04/22/2025. Patient's daughter reports he has had 11 falls, about 1 a month over the last year. Patient saw a neurologist and has vascular dementia, but he has also had some features concerning for Parkinson's disease.
Patient is waiting for an evaluation by a neurologist that is a movement specialist coming up in May. Patient does not complete vigorous activity, he denies any chest pain or SOB with walking around his home, he never has any resting symptoms.
Patient follows with a assistant oceanographer out of [facility] and he thinks that he saw them within the last few months, I have called for records. Patient with known paroxysmal A-fib and he is reportedly asymptomatic with this.
PMH:
Previous right TSA, NINA and TKA
Paroxysmal A-fib
Chronic Eliquis OAC, last dose 04/14/2025 PM
HTN
Hyperlipidemia
Vascular dementia
Past Medical History
Past Medical History: Other (In HPI)
Past Surgical History: Appendectomy, Orthopedic and Tonsilectomy
Social History
Tobacco: Non-Smoker
Alcohol: Occasional
Drug: None
Personal:
Living: With Family
Family History
Family History: Other (No FH of CAD)
Allergies / Home Medications
Allergy/AdvReac Type Severity Reaction Status Date / Time
No Known Allergies Allergy Verified 10/27/14 13:54
�Medication �Instructions �Recorded �Confirmed �Type
apixaban 5 mg tablet (Eliquis) 5 mg PO BID Blood Clot 04/15/25 04/15/25 History
Prevention/Tx
donepezil 10 mg tablet 10 mg PO HS Mental Health/Anxiety 04/15/25 04/15/25 History
ferrous sulfate 325 mg (65 mg 325 mg PO DAILY Supplement 04/15/25 04/15/25 History
iron) tablet
finasteride 5 mg tablet 5 mg PO DAILY Urinary Issue 04/15/25 04/15/25 History
losartan 50 mg tablet 50 mg PO DAILY Blood Pressure 04/15/25 04/15/25 History
metoprolol succinate 25 mg 25 mg PO DAILY Heart 04/15/25 04/15/25 History
tablet,extended release 24 hr Disease/Condition
(Toprol XL)
midodrine 2.5 mg tablet 2.5 mg PO TID 04/15/25 04/15/25 History
mirabegron 50 mg tablet,extended 50 mg PO DAILY Urinary Issue 04/15/25 04/15/25 History
release 24 hr (Myrbetriq)
pravastatin 40 mg tablet 40 mg PO HS High Cholesterol 04/15/25 04/15/25 History
sertraline 100 mg tablet 100 mg PO DAILY Mental 04/15/25 04/15/25 History
Health/Anxiety
Review of Systems
-
History Source: Patient and Family (Daughter sitting bedside and helping with HPI)
All other systems: Negative unless noted
Physical Exam
Vital Signs
Temp Pulse Resp BP Pulse Ox
97.9 F 117 15 104/58 96
04/15/25 07:34 04/15/25 09:30 04/15/25 09:30 04/15/25 14:00 04/15/25 14:15
GEN: NAD, AAO x 3
HEENT: EOMI, MMM
LUNGS: RA. Clear anterolaterally without rales
CV: SR on telemetry. Reg, S1/S2, 06/23 syst LSB
ABD: ND
EXT: Right shoulder is swollen and ecchymotic. No edema B/L LE
NEURO: Gross non-focal
SKIN: No rash
Lab Results
04/15/25 07:46
04/15/25 07:46
Impression / Plan
-
PCP: Dr. Mccain
Cardiology: Dr. Sinclair
Impression:
Admitted with fall and right humerus periprosthetic fracture 04/15/2025
Ambulatory dysfunction and falls prior to admission
Right humerus periprosthetic fracture 04/15/2025
Previous right NINA and TKA
Paroxysmal A-fib
Chronic Eliquis OAC, last dose 04/14/2025 PM
HTN
Hyperlipidemia
Vascular dementia
Echo 04/16/2025: Study pending
Plan:
-Patient came to the ER after a fall at home and is being admitted with right humerus periprosthetic fracture and cardiology is consulted for preoperative cardiovascular risk stratification. Patient and daughter help with HPI, patient awoke to use
the bathroom at about 0400 this morning and fell in his bedroom onto a carpeted surface. The patient's called the nonemergency number and paramedics were able to get the patient back into bed. Later this today the patient was feeling better
and got up to use the bathroom and once in the bathroom he fell again landing on his right shoulder and fell hitting a hard tile floor. Patient is being admitted with a right humerus periprosthetic fracture and will require operative repair that is
currently scheduled for 04/22/2025. Patient's daughter reports he has had 11 falls, about 1 a month over the last year. Patient saw a neurologist and has vascular dementia, but he has also had some features concerning for Parkinson's disease.
Patient is waiting for an evaluation by a neurologist that is a movement specialist coming up in May. Patient does not complete vigorous activity, he denies any chest pain or SOB with walking around his home, he never has any resting symptoms.
Patient follows with a assistant oceanographer out of [facility] and he thinks that he saw them within the last few months, I have called for records. Patient with known paroxysmal A-fib and he is reportedly asymptomatic with this.
-ECG reviewed by me is SR without acute ST changes
-I called the patient's primary assistant oceanographer to obtain records 04/15/2025.
-Check echo, ordered by me
-Patient denies any chest pain or SOB with walking around his home, but does not complete higher levels of activity due to vascular dementia and Parkinson's features lately including shuffling gait.
-Patient's daughter also reports episodes of lightheadedness that sound like orthostasis. Will follow BPs for now and could consider addition of midodrine if needed. There may be an element of autonomic dysfunction. VS reviewed by me and patient
was HTN on admission and now closer to hypotension.
-Patient with known paroxysmal A-fib, but currently NSR. He is asymptomatic with A-fib. Recommend telemetry monitoring.
-Eliquis is on hold, last dose was 04/06/2025 PM. If patient has recurrent atrial arrhythmia would consider starting heparin gtt. Patient's daughter has appropriate concerns about long-term suitability for OAC, patient has had 11 falls in the last
year. If patient is going to rehab following this admission and strength is improved then could consider continuing OAC. Also his movement specialist visit is coming up in May and so there is the possibility of medication intervention that
may also help improve the frequency of falls.
--- NOTE | 2025-04-15 16:37 | W.PN.UPDATE ---
Update Note
Progress Note Update
I obtained, reviewed and summarized records from his primary textile conversion manager as outlined below.
Saw Dr. Sinclair in the office on 02/03/2025.
Echo 11/13/2023: [facility] study, EF 58%, no WMA, mild concentric LVH, normal RV size and function, moderate MR, moderate aortic regurgitation
Paroxysmal atypical atrial flutter with previous ablation 05/2022 and cardioversion was being considered if he had persistent arrhythmia
Patient completed a 30-day extended Holter monitor 11/2022 that showed significant A-fib burden of around 47%, but he was asymptomatic with that.
Dizziness was being attributed to orthostasis and patient was usual dose of midodrine was increased to 7.5 mg TID
Echo ordered for morning by me
[2025-04-15] MEDS: TYLENOL 650 MG PO ×3 (18:02→23:55)
[2025-04-15] MEDS: SENOKOT 17.2 MG PO (19:18)
[2025-04-15] MEDS: COLACE 100 MG PO (19:18)
[2025-04-15] MEDS: PRAVACHOL 40 MG PO (22:45)
[2025-04-15] MEDS: ARICEPT 10 MG PO (22:45)
[2025-04-16] VITALS (7 sets, daily range): BP systolic 87–143; BP diastolic 42–94; PULSE 74–100; O2SAT 96; BMI 26.9
[2025-04-16] MEDS: TYLENOL 650 MG PO ×4 (04:05→19:40)
--- NOTE | 2025-04-16 07:16 | W.PN.UPDATE ---
Update Note
Progress Note Update
Patient unfortunately has a right periprosthetic shoulder fracture which is going to be addressed surgically once medically cleared. He is to undergo an echo this morning. This morning he says that he has quite a bit of pain. Right shoulder edema
and ecchymosis noted. Range of motion not assessed secondary to fracture. Distal neurovascular was intact. He has tentatively been scheduled for revision right total shoulder replacement for April 22, [address] Reynolds. Orthopedics will
continue to follow along
[2025-04-16] MEDS: COLACE 100 MG PO ×2 (08:57→19:40)
[2025-04-16] MEDS: SENOKOT 17.2 MG PO ×2 (08:58→19:40)
[2025-04-16] MEDS: MYRBETRIQ EXTENDED RELEASE 50 MG PO (08:59)
[2025-04-16] MEDS: FEOSOL 325 MG PO (09:00)
[2025-04-16] MEDS: PROSCAR 5 MG PO (09:00)
[2025-04-16] MEDS: ZOLOFT 100 MG PO (09:00)
[2025-04-16] MEDS: TOPROL XL 25 MG PO (09:08)
--- NOTE | 2025-04-16 09:49 | W.PN.HOSP.TC ---
Today's Communication/Plan
-
Increase midodrine. Hold antihypertensives with parameters.
Echo for today pending.
Continue with the pain regimen.
Assessment / Plan
Assessment / Plan
Mechanical fall leading to right humerus complicated periprosthetic fracture.
Continue with pain control . Orthopedic involved-Will need to wait for the hardware to arrive for surgical correction.
Leave the right arm in the sling. Continue PT OT eval.
Frequent falls secondary to bladder dysfunction-ongoing movement disorder neurology evaluation. Continue with PT OT
Orthostatic hypotension-persistent orthostatic BP drop with symptoms. Increase midodrine dose. Check a TSH and cortisol in AM.
History of dementia on donepezil-watch for .
Paroxysmal atrial fibrillation-patient in sinus rhythm ;improved tachy .. Suspect may be due to pain. EKG with nonspecific ST-T changes but no acute ST-T changes. Follow on telemetry. Continue the beta-jaycee. With frequent falls I suspect he
is not a candidate for Eliquis going forward. Hold for now.
Appt cards input regarding pre op cardiac clearance. ECHO pending.
Hypertension-continue with losartan with parameters
BPH-continue finasteride
Full code
DW PT and RN
Portions of this chart may have been created with voice recognition software. Occasional wrong word or 'sound alike' substitutions may have occurred due to the inherent limitations of voice recognition software.
Anticipated Discharge: > 48 hours
Subjective/Interval History
-
Date of Service: April 16, 2025
Pain still a significant symptom from the right shoulder.
Denies any chest pain or shortness of breath. No nausea vomiting.
Orthostatic dizziness. Big drop in blood pressure noted precluding PT to work with him.
No nausea. No fever chills.
Objective Data
-
Vital Signs:
Vital Signs
Temp Pulse Resp BP Pulse Ox
98.0 F 94 18 111/55 96
04/16/25 08:00 04/16/25 09:08 04/16/25 08:00 04/16/25 09:08 04/16/25 08:00
I&O
04/15/25 04/16/25 04/17/25
06:59 06:59 06:59
Intake Total 120 / 120
Output Total 400 / 400
Balance -280 / -280
Physical Exam
-
General: Comfortable
Respiratory: Clear to Auscultation and Non Labored Respirations; Negative Accessory Resp Muscle Use
Cardiac: S1/S2 and Irregular Rhythm; Negative Tachycardic
GI: Soft and Nontender
Musculoskeletal: Other (Right arm in sling. No hand swelling. Radial pulse intact. No tingling or numbness in the hand.)
Neuro: AO x 3
Psych: Calm
Data Reviewed
-
Labs: Labs Reviewed by me
[2025-04-16] MEDS: ROXICODONE 5 MG PO ×2 (10:00→14:40)
--- NOTE | 2025-04-16 10:12 | W.PN.CARDCBS ---
Today's Communication / Plan
-
Patient went into A-fib overnight
Continue metoprolol for rate control
Favor starting heparin drip for risk reduction of cardioembolic stroke while awaiting OR 04/22
Impression / Plan
-
PCP: Dr. Mccain
Cardiology: Dr. Sinclair
Impression:
Admitted with fall and right humerus periprosthetic fracture 04/15/2025
Ambulatory dysfunction and falls prior to admission
Right humerus periprosthetic fracture 04/15/2025
Previous right NINA and TKA
Paroxysmal A-fib
Chronic Eliquis OAC, last dose 04/14/2025 PM
HTN
Hyperlipidemia
Vascular dementia
Echo 04/16/2025: Study pending
Plan:
-Presented after a fall at home found to have callie-prosthetic humeral frx. Surgery tentatively planned for 04/22. No cardiac contraindication to proceeding with surgery.
-Patient with known paroxysmal A-fib and he is reportedly asymptomatic with this
-Initial ECG is SR, but went into AFib overnight 04/15 by review of telemetry
-Eliquis was held
-Would favor starting heparin gtt while awaiting surgery
-Continue metoprolol for rate control. Would consider adding amiodarone for adjunct rate control given marginal BP.
-Check echo
-Patient's daughter also reports episodes of lightheadedness that sound like orthostasis
- Hold ARB with marginal BP
- Continue BB if able
-May need to uptitrate midodrine - likely an element of autonomic dysfunction
Records from primary cotton ball bagger were requested
Discussed with nursing
Patient came to the ER after a fall at home and is being admitted with right humerus periprosthetic fracture and cardiology is consulted for preoperative cardiovascular risk stratification. Patient and daughter help with HPI, patient awoke to use
the bathroom at about 0400 this morning and fell in his bedroom onto a carpeted surface. The patient's called the nonemergency number and paramedics were able to get the patient back into bed. Later this today the patient was feeling better
and got up to use the bathroom and once in the bathroom he fell again landing on his right shoulder and fell hitting a hard tile floor. Patient is being admitted with a right humerus periprosthetic fracture and will require operative repair that is
currently scheduled for 04/22/2025. Patient's daughter reports he has had 11 falls, about 1 a month over the last year. Patient saw a neurologist and has vascular dementia, but he has also had some features concerning for Parkinson's disease.
Patient is waiting for an evaluation by a neurologist that is a movement specialist coming up in May. Patient does not complete vigorous activity, he denies any chest pain or SOB with walking around his home, he never has any resting symptoms.
Patient follows with a cotton ball bagger out of [facility] and he thinks that he saw them within the last few months, I have called for records.
Progress Note - Shampoo Assistant
Subjective
Date of Service: April 16, 2025
Asymptomatic from a CV standpoint this AM. Went into AFib overnight, but was unaware of this and is not experiencing palpitations.
Objective
Labs:
04/15/25 07:46
04/15/25 07:46
Labs
Hgb 14.6 g/dL (13.0-18.0) 04/15/25 07:46
Hct 44.5 % (39.0-52.0) 04/15/25 07:46
Plt Count 169 10^3/uL (130-400) 04/15/25 07:46
Sodium 140 mmol/L (135-145) 04/15/25 07:46
Potassium mmol/L (3.5-5.1) 04/15/25 07:46
BUN 26 mg/dl (9-20) H 04/15/25 07:46
Creatinine 0.8 mg/dL (0.7-1.3) 04/15/25 07:46
Glucose 107 mg/dl (70-99) H 04/15/25 07:46
Vital Signs and I&O:
Vital Signs
Temp Pulse Resp BP Pulse Ox
98.0 F 94 18 111/55 96
04/16/25 08:00 04/16/25 09:08 04/16/25 08:00 04/16/25 09:08 04/16/25 08:00
Vital Signs
Temp Pulse Resp BP Pulse Ox
98.0 F 94 18 111/55 96
04/16/25 08:00 04/16/25 09:08 04/16/25 08:00 04/16/25 09:08 04/16/25 08:00
Intake & Output
04/14/25 04/15/25 04/16/25 04/17/25
06:59 06:59 06:59 06:59
Intake Total 120 / 120
Output Total 400 / 400
Balance -280 / -280
Physical Exam
Physical Exam
Gen: NAD, AA
HEENT: NC/AT, sclera anicteric
Neck: No JVD
CV: Irregularly irregular, NL s1/s2
Lungs: CTAB
Abd: S/ND
Ext: No LE edema
Skin: Warm, dry
Neuro: Non-focal
[2025-04-16 11:11] LABS: Hematocrit 38.8 % (39.0-52.0); Hemoglobin 12.5 g/dL (13.0-18.0); Mean Corp Hgb Conc. 32.2 g/dL (33.0-37.0); Mean Corpuscular Volume 101.3 fL (80.0-94.0); Platelet Count 147 10^3/uL (130-400); Red Cell Dist. Width 13.6 % (11.5-14.5)
[2025-04-16 11:22] LABS: APTT 34.6 Sec (23.4-35.0)
[2025-04-16] MEDS: HEPARIN 4000 UNITS IV (11:49)
[2025-04-16] MEDS: HEPARIN 25000 UNITS/250 ML IV (11:53)
--- NOTE | 2025-04-16 15:34 | CM ---
PT recommends SNF when patient is stable for discharge
Spoke via phone to patient's son; facilities identified; referrals sent to [facility] and [facility]
Plan: Discharge to SNF when medically and surgically stable pending bed availability
--- NOTE | 2025-04-16 16:00 | WOUNDNOTE ---
RIGHT AND LEFT MEDIAL LEGS
--- NOTE | 2025-04-16 16:30 | WOUNDNOTE ---
Right lateral leg abrasion
--- NOTE | 2025-04-16 16:30 | WOUNDNOTE ---
[facility] RN NOTE: Reviewed chart and met with patient. Patient has multiple scabbed abrasion and large right knee scabbed wound. No drainage or erythema noted around wound and patient denies pain. Both patient and are poor historians of events/falls
leading to the abrasions. Will recommend protective foam to right knee abrasion. Will recommend static air overlay as patient demonstrates poor mobility. Heels intact. Will update care plan and sign off.
[2025-04-16] MEDS: TYLENOL PO (16:51)
[2025-04-16 18:19] LABS: APTT 91.7 Sec (23.4-35.0)
[2025-04-16] MEDS: PRAVACHOL 40 MG PO (19:40)
[2025-04-16] MEDS: ARICEPT 10 MG PO (19:40)
[2025-04-17] VITALS (8 sets, daily range): BP systolic 94–157; BP diastolic 55–83; PULSE 75–89; O2SAT 96
[2025-04-17] MEDS: TYLENOL PO (01:19)
[2025-04-17] MEDS: TYLENOL 650 MG PO ×6 (03:53→23:14)
--- NOTE | 2025-04-17 04:12 | W.PN.UPDATE ---
Update Note
Progress Note Update
Patient unfortunately has a RIGHT periprosthetic shoulder fracture which is going to be corrected surgically once medically cleared. Echo completed 16 April, pending read/interpretation. He is quite uncomfortable. Right shoulder edema and
ecchymosis noted. Range of motion deferred secondary to fracture. DNVI RUE. Remain in sling. Tentative plan for revision RIGHT total shoulder replacement is May [address] Reynolds. Orthopedics will follow during his admission.
[2025-04-17 04:25] LABS: APTT 78.1 Sec (23.4-35.0)
[2025-04-17 04:31] LABS: Hematocrit 34.4 % (39.0-52.0); Hemoglobin 11.6 g/dL (13.0-18.0); Mean Corp Hgb Conc. 33.7 g/dL (33.0-37.0); Mean Corpuscular Volume 95.6 fL (80.0-94.0); Platelet Count 136 10^3/uL (130-400); Red Cell Dist. Width 13.5 % (11.5-14.5)
[2025-04-17 04:33] LABS: Blood Urea Nitrogen 20 mg/dl (9-20); Calcium 9.0 mg/dl (8.4-10.2); Carbon Dioxide 26 mmol/L (22-30); Chloride 105 mmol/L (98-107); Estimated Creatinine Clearance 87 ml/min; Glucose 102 mg/dl (70-99); Potassium 3.8 mmol/L (3.5-5.1); Sodium 135 mmol/L (135-145); eGFR > 60.00
[2025-04-17 05:05] LABS: Cortisol, Random 19.5 ug/dl
[2025-04-17] MEDS: MYRBETRIQ EXTENDED RELEASE 50 MG PO (09:17)
[2025-04-17] MEDS: SENOKOT 17.2 MG PO ×2 (09:17→20:18)
[2025-04-17] MEDS: ZOLOFT 100 MG PO (09:18)
[2025-04-17] MEDS: TOPROL XL 25 MG PO (09:18)
[2025-04-17] MEDS: FEOSOL 325 MG PO (09:18)
[2025-04-17] MEDS: PROSCAR 5 MG PO (09:18)
[2025-04-17] MEDS: COLACE 100 MG PO ×2 (09:19→20:18)
--- NOTE | 2025-04-17 09:30 | WOUNDNOTE ---
[facility] RN NOTE: Reviewed chart and met with patient. Patient has multiple scabbed abrasion and large right knee scabbed wound. No drainage or erythema noted around wound and patient denies pain. Both patient and are poor historians of events/falls
leading to the abrasions. Will recommend protective foam to right knee abrasion. Will recommend static air overlay as patient demonstrates poor mobility. Heels intact. Will update care plan and sign off.
--- NOTE | 2025-04-17 09:45 | W.PN.CARDCBS ---
Today's Communication / Plan
-
Back in sinus rhythm. Continue Toprol and IV heparin. Continue to hold Eliquis
Echo with preserved ejection fraction and only mild valve disease.
Stable to proceed with the OR next week
Continue to follow on telemetry
Continue to hold losartan and use midodrine as needed. Blood pressure is improved
Impression / Plan
-
PCP: Dr. Mccain
Cardiology: Dr. Sinclair
Impression:
Admitted with fall and right humerus periprosthetic fracture 04/15/2025
Ambulatory dysfunction and falls prior to admission
Right humerus periprosthetic fracture 04/15/2025
Previous right NINA and TKA
Paroxysmal A-fib
Chronic Eliquis OAC, last dose 04/14/2025 PM
HTN
Hyperlipidemia
Vascular dementia
Echo 04/16/2025: EF 55 to 60%, mild AI, aortic sclerosis, PA pressure 25
Plan:
- Back in sinus rhythm. Overall doing well. Continue IV heparin and Toprol 25 mg daily.
- Blood pressures improved. Continue to hold losartan.
- Remains on midodrine. Okay to decrease this if blood pressure remains stable.
- Echo has a preserved ejection fraction with only mild valve disease.
- Continue telemetry
- He is stable to proceed with the OR next week.
Discussed with nursing
Patient came to the ER after a fall at home and is being admitted with right humerus periprosthetic fracture and cardiology is consulted for preoperative cardiovascular risk stratification. Patient and daughter help with HPI, patient awoke to use
the bathroom at about 0400 this morning and fell in his bedroom onto a carpeted surface. The patient's called the nonemergency number and paramedics were able to get the patient back into bed. Later this today the patient was feeling better
and got up to use the bathroom and once in the bathroom he fell again landing on his right shoulder and fell hitting a hard tile floor. Patient is being admitted with a right humerus periprosthetic fracture and will require operative repair that is
currently scheduled for 04/22/2025. Patient's daughter reports he has had 11 falls, about 1 a month over the last year. Patient saw a neurologist and has vascular dementia, but he has also had some features concerning for Parkinson's disease.
Patient is waiting for an evaluation by a neurologist that is a movement specialist coming up in May. Patient does not complete vigorous activity, he denies any chest pain or SOB with walking around his home, he never has any resting symptoms.
Patient follows with a lab rn out of [facility] and he thinks that he saw them within the last few months, I have called for records.
Progress Note - Kelp Or Seagrass Gatherer
Subjective
Date of Service: April 17, 2025
Having some arm pain. Denies palpitations or chest pains. Blood pressure much improved
Objective
Labs:
04/17/25 03:50
04/17/25 03:50
Labs
Hgb 11.6 g/dL (13.0-18.0) L 04/17/25 03:50
Hct 34.4 % (39.0-52.0) L 04/17/25 03:50
Plt Count 136 10^3/uL (130-400) 04/17/25 03:50
APTT 78.1 Sec (23.4-35.0) H 04/17/25 03:50
Sodium 135 mmol/L (135-145) 04/17/25 03:50
Potassium 3.8 mmol/L (3.5-5.1) 04/17/25 03:50
BUN 20 mg/dl (9-20) 04/17/25 03:50
Creatinine 0.7 mg/dL (0.7-1.3) 04/17/25 03:50
Glucose 102 mg/dl (70-99) H 04/17/25 03:50
Vital Signs and I&O:
Vital Signs
Temp Pulse Resp BP Pulse Ox
97.8 F 79 16 142/72 98
10/31/25 07:00 04/17/25 09:18 04/17/25 07:00 04/17/25 09:18 04/17/25 07:00
Vital Signs
Temp Pulse Resp BP Pulse Ox
97.8 F 79 16 142/72 98
04/17/25 07:00 04/17/25 09:18 04/17/25 07:00 04/17/25 09:18 04/17/25 07:00
Intake & Output
04/15/25 04/16/25 04/17/25 04/18/25
06:59 06:59 06:59 06:59
Intake Total 120 / 120 780 / 780
Output Total 400 / 400 300 / 300
Balance -280 / -280 480 / 480
Physical Exam
Physical Exam
GEN: No distress, awake, Ox3
HEENT: supple, anicteric, mmm
LUNGS: CTA, no wheezes/rales
CV: Reg, S1/S2, 1/6 syst LSB, no gallop
ABD: soft, BS+, NT/ND
EXT: R arm sling
NEURO: Gross non-focal
SKIN: No rash
--- NOTE | 2025-04-17 11:44 | W.PN.HOSP.TC ---
Today's Communication/Plan
-
Continue current treatments including IV heparin
Assessment / Plan
Assessment / Plan
Mechanical fall leading to right humerus complicated periprosthetic fracture.
Continue with pain control . Orthopedic involved-Will need to wait for the hardware to arrive for surgical correction.Tentative plans for OR on 04/22.
Leave the right arm in the sling. Continue PT OT eval.
Frequent falls secondary to bladder dysfunction-ongoing movement disorder neurology evaluation. Continue with PT OT
Orthostatic hypotension-persistent orthostatic BP drop with symptoms. Increase midodrine dose. TSH and cortisol are ok.
History of dementia on donepezil-watch for .
Paroxysmal atrial fibrillation-patient in sinus rhythm .EKG with nonspecific ST-T changes but no acute ST-T changes. Follow on telemetry. Continue the beta-jaycee. With frequent falls I suspect he is not a candidate for Chronic AC going forward.
Hold for now. IV heparin in interim. Cards following.
Appt cards input regarding pre op cardiac clearance. ECHO 05/17 shows EF 55 to 60%, mild AR, trace MR, mild TR. cleared for OR.
Hypertension-continue with losartan with parameters
BPH-continue finasteride
Full code
Portions of this chart may have been created with voice recognition software. Occasional wrong word or 'sound alike' substitutions may have occurred due to the inherent limitations of voice recognition software.
Anticipated Discharge: > 48 hours
Subjective/Interval History
-
Date of Service: April 17, 2025
Apart from right shoulder pain voices no new specific complaints. Pain manageable with the pain medication. It can get intense in the day.
Denies any fever or chills.
Denies any shortness of breath or chest pain. No palpitations.
Denies any nausea vomiting. Tolerating diet.
Objective Data
-
Labs:
Laboratory Results
04/17/25
03:50
WBC 7.7
Hgb 11.6 L
Hct 34.4 L
Plt Count 136
APTT 78.1 H
Sodium 135
Potassium 3.8
Chloride 105
Carbon Dioxide 26
BUN 20
Creatinine 0.7
Glucose 102 H
Calcium 9.0
Vital Signs:
Vital Signs
Temp Pulse Resp BP Pulse Ox
98.0 F 79 17 129/60 97
04/17/25 11:00 04/17/25 11:00 04/17/25 11:00 04/17/25 11:00 04/17/25 11:00
I&O
04/16/25 04/17/25 04/18/25
06:59 06:59 06:59
Intake Total 120 / 120 780 / 780
Output Total 400 / 400 300 / 300
Balance -280 / -280 480 / 480
Physical Exam
-
General: No Apparent Distress
Respiratory: Clear to Auscultation (anteriorly) and Non Labored Respirations; Negative Accessory Resp Muscle Use
Cardiac: Regular Rhythm and S1/S2; Negative Tachycardic (SR on monitor)
Musculoskeletal: Other (no right hand or forearm swelling)
Neuro: AO x 3
Data Reviewed
-
Labs: Labs Reviewed by me
--- NOTE | 2025-04-17 12:36 | PN.CDI ---
CDI
- -
CDI:
Physician Documentation Request
Admit Date: 04/15/25 14:07
Dear Doctor Dmitri,
Please review the following and provide your response in the progress notes.
Clinical Indicators:
- Sawmill Or Timber Yard Worker note indicates severe protein calorie malnutrition
- Unintentional weight loss >7.5% in 3 months
- Nutrient intake </= 75% estimated energy needs, >/= 1 month
- 'Pt reports difficulty with feeding self with non-dominant hand'
Based on the above information and your assessment, which of the following most accurately represents the patient's nutritional status?
Severe protein calorie malnutrition
Other (please specify)
[place] Criteria ([facility] Hospitalist 2017)
2 or more criteria must be present for either
non severe or severe malnutrition
Note that the criteria differs related to the
presence of an acute or chronic illness
Acute Illness Chronic Illness
Energy Intake Non Severe: <75% for >7 days Non Severe: <75% for >1 month
Severe: <50% for >5 days Severe: <75% for >1 month
Weight Loss Non Severe: 1-2% over 1 week Non Severe: 5% over 1 month
5% over 1 month 7.5% over 3 months
7.5% over 3 months 10% over 6 months
1 year N/A 20% over 1 year
Severe: >2% over 1 week Severe: >5% over 1 month
>5% over 1 month >7.5% over 3 months
>7.5% over 3 months >10% over 6 months
1 year N/A >20% over 1 year
Body Fat Non Severe: Mild Decrease Non Severe: Mild Loss
Severe: Moderate Decrease Severe: Severe Loss
Muscle Mass Non Severe: Mild Decrease Non Severe: Mild Loss
Severe: Moderate Decrease Severe: Severe Loss
Fluid Accumulation Non Severe: Mild Accumulation Non Severe: Mild Accumulation
Severe: Moderate to severe Severe: Moderate to severe
accumulation accumulation
Reduced Refrigeration Installer Strength Non Severe: N/A Non Severe: N/A
Severe: Measurably reduced Severe: Measurably reduced
Additional criteria that can be used to Determine if Mild or Moderate Malnutrition ([employer] Manual 2018)
Mild Moderate Severe
Albumin gm/dl <3.0 gm/dl <2.5 gm/dl <2.0 gm/dl
Pre Albumin mg/dl <15 gm/dl <10 mg/dl <5.0 mg/dl
BMI <18.5 <17 <16
Use of terms such as suspected, likely, concern for, or probable (associated with a specific diagnosis that is being evaluated, monitored, or treated as if it exists) are acceptable and can be coded in the inpatient setting, when documented at the
time of discharge.
Thank you,
Kamala Valerio RN
CDI Specialist
Please use your independent medical judgment in providing your response.
[2025-04-17] MEDS: HEPARIN 25000 UNITS/250 ML IV (13:04)
[2025-04-17] MEDS: ARICEPT 10 MG PO (22:27)
[2025-04-17] MEDS: PRAVACHOL 40 MG PO (22:27)
[2025-04-17] MEDS: ROXICODONE 5 MG PO (22:35)
[2025-04-18] VITALS (9 sets, daily range): BP systolic 93–173; BP diastolic 51–79
[2025-04-18] MEDS: TYLENOL 650 MG PO ×5 (03:45→21:45)
[2025-04-18 06:39] LABS: APTT 103.3 Sec (23.4-35.0)
[2025-04-18 07:22] LABS: Hematocrit 31.6 % (39.0-52.0); Hemoglobin 10.2 g/dL (13.0-18.0); Mean Corp Hgb Conc. 32.3 g/dL (33.0-37.0); Mean Corpuscular Volume 99.7 fL (80.0-94.0); Platelet Count 127 10^3/uL (130-400); Red Cell Dist. Width 13.6 % (11.5-14.5)
[2025-04-18] MEDS: MYRBETRIQ EXTENDED RELEASE 50 MG PO (08:59)
[2025-04-18] MEDS: FEOSOL 325 MG PO (09:00)
[2025-04-18] MEDS: TOPROL XL 25 MG PO (09:00)
[2025-04-18] MEDS: SENOKOT 17.2 MG PO ×2 (09:00→21:45)
[2025-04-18] MEDS: COLACE 100 MG PO ×2 (09:00→21:46)
[2025-04-18] MEDS: ZOLOFT 100 MG PO (09:00)
--- NOTE | 2025-04-18 09:00 | W.PN.UPDATE ---
Update Note
Progress Note Update
79-year-old male with a RIGHT periprosthetic shoulder fracture. Appreciate Cardiology and primary teams; per Cardiology patient stable to proceed with the OR next week. On IV Heparin per Cardiology. Patient reports that his right shoulder pain is
controlled at rest. Right shoulder edema and ecchymosis noted. Range of motion deferred secondary to fracture. DNVI RUE. Remain in sling. Plan for ORIF RIGHT periprosthetic proximal humerus fracture with hemiarthroplasty vs. reverse total shoulder
arthroplasty with explant under the direction of Dr. Reynolds on Sunday04/22/2025. Surgical and blood consent in chart. T&S will be requested closer to DOS. Orthopedics will follow during his admission.
[2025-04-18] MEDS: PROSCAR 5 MG PO (09:01)
[2025-04-18] MEDS: ROXICODONE 5 MG PO ×2 (10:00→21:44)
--- NOTE | 2025-04-18 10:07 | W.PN.HOSP.TC ---
Addendum entered and electronically signed by Jose Luis Rizvi MD 04/18/25 16:22:
severe protein calorie malnutrition
- Unintentional weight loss >7.5% in 3 months
- Nutrient intake </= 75% estimated energy needs, >/= 1 month
- 'Pt reports difficulty with feeding self with non-dominant hand'
Original Note:
Today's Communication/Plan
-
Hold IV heparin. Follow H&H every 8 hours today. Heme test stools.
Assessment / Plan
Assessment / Plan
Mechanical fall leading to right humerus complicated periprosthetic fracture.
Continue with pain control . Orthopedic involved-Will need to wait for the hardware to arrive for surgical correction.Tentative plans for OR on 04/22.
Leave the right arm in the sling. Continue PT OT eval.
Frequent falls secondary to bladder dysfunction-ongoing movement disorder neurology evaluation. Continue with PT OT
Orthostatic hypotension-persistent orthostatic BP drop with symptoms. Increase midodrine dose. TSH and cortisol are ok.
History of dementia on donepezil-watch for .
Paroxysmal atrial fibrillation-patient in sinus rhythm .EKG with nonspecific ST-T changes but no acute ST-T changes. Follow on telemetry. Continue the beta-jaycee. With frequent falls I suspect he is not a candidate for Chronic AC going forward.
Hold for now. On IV heparin in interim. Cards following.
Appt cards input regarding pre op cardiac clearance. ECHO 05/17 shows EF 55 to 60%, mild AR, trace MR, mild TR. cleared for OR.
Acute anemia-significant drop in H&H from 14.6-10.2 noted. No obvious external bleeding. Will check heme test stools. Concerned about bleeding into the soft tissue in the right shoulder which is more swollen and more extremely painful. Would
hold on IV heparin.
Hypertension-continue with losartan with parameters
BPH-continue finasteride
Full code
DVT prophylaxis - Seq teds for now till bleeding issue is corrected
DW Ortho and Cards
Portions of this chart may have been created with voice recognition software. Occasional wrong word or 'sound alike' substitutions may have occurred due to the inherent limitations of voice recognition software.
Anticipated Discharge: > 48 hours
Subjective/Interval History
-
Date of Service: April 18, 2025
Patient complains of worsening pain in the right shoulder and minimal movement hurts it.
He denies any dizziness while in bed.
No nausea vomiting or abdominal pain. He had a bowel movement. No trouble with GI bleed in the past.
No chest pain or shortness of breath.
Objective Data
-
Labs:
Laboratory Results
04/18/25
06:17
WBC 7.3
Hgb 10.2 L
Hct 31.6 L
Plt Count 127 L
APTT 103.3 H
Vital Signs:
Vital Signs
Temp Pulse Resp BP Pulse Ox
97.6 F 78 14 117/53 96
04/18/25 08:53 04/18/25 09:00 04/18/25 08:53 04/18/25 09:00 04/18/25 08:53
I&O
04/17/25 04/18/25 04/19/25
06:59 06:59 05:59
Intake Total 780 / 780 600 / 600
Output Total 300 / 300 50 / 50
Balance 480 / 480 550 / 550
Physical Exam
-
General: No Apparent Distress
Respiratory: Clear to Auscultation (Anteriorly) and Non Labored Respirations; Negative Accessory Resp Muscle Use
Cardiac: Regular Rhythm and S1/S2; Negative Tachycardic
GI: Soft and Nontender
Musculoskeletal: Other (Right shoulder upper arm with swelling. Distally hand is okay without swelling. Palpable radial artery. Strength in the distal arm 5 out of 5)
Neuro: AO x 3
Psych: Calm
Data Reviewed
-
Labs: Labs Reviewed by
--- NOTE | 2025-04-18 12:35 | W.PN.UPDATE ---
Update Note
Progress Note Update
There is now concern with active bleeding into the shoulder.
Discussed with hospitalist.
Given history of atrial fibrillation as well as history of TIAs, he is at elevated thromboembolic risk, however given concern with active bleeding into his shoulder will need to stop IV heparin.
Would plan to resume anticoagulation once hemostasis is assured and this may not be until after his revision.
[2025-04-18 14:10] LABS: Hematocrit 32.7 % (39.0-52.0); Hemoglobin 11.2 g/dL (13.0-18.0)
[2025-04-18] MEDS: ARICEPT 10 MG PO (21:45)
[2025-04-18] MEDS: PRAVACHOL 40 MG PO (21:46)
[2025-04-18 23:08] LABS: Hematocrit 34.4 % (39.0-52.0); Hemoglobin 11.0 g/dL (13.0-18.0)
[2025-04-18] MEDS: TYLENOL PO (23:43)
[2025-04-19] VITALS (9 sets, daily range): BP systolic 95–154; BP diastolic 58–79; PULSE 77–81; O2SAT 98–99
[2025-04-19] MEDS: TYLENOL PO (06:40)
[2025-04-19 06:51] LABS: Blood Urea Nitrogen 18 mg/dl (9-20); Calcium 9.0 mg/dl (8.4-10.2); Carbon Dioxide 30 mmol/L (22-30); Chloride 105 mmol/L (98-107); Estimated Creatinine Clearance 76 ml/min; Glucose 85 mg/dl (70-99); Potassium 4.0 mmol/L (3.5-5.1); Sodium 138 mmol/L (135-145); eGFR > 60.00
[2025-04-19 07:23] LABS: Hematocrit 32.1 % (39.0-52.0); Hemoglobin 10.6 g/dL (13.0-18.0); Mean Corp Hgb Conc. 33.0 g/dL (33.0-37.0); Mean Corpuscular Volume 97.0 fL (80.0-94.0); Platelet Count 136 10^3/uL (130-400); Red Cell Dist. Width 13.7 % (11.5-14.5)
[2025-04-19] MEDS: TYLENOL 650 MG PO ×4 (08:07→20:15)
[2025-04-19] MEDS: FEOSOL 325 MG PO (08:07)
[2025-04-19] MEDS: COLACE 100 MG PO ×2 (08:07→20:11)
[2025-04-19] MEDS: TOPROL XL 25 MG PO (08:12)
[2025-04-19] MEDS: MYRBETRIQ EXTENDED RELEASE 50 MG PO (08:12)
[2025-04-19] MEDS: SENOKOT 17.2 MG PO ×2 (08:14→20:11)
[2025-04-19] MEDS: ZOLOFT 100 MG PO (08:15)
[2025-04-19] MEDS: PROSCAR 5 MG PO (08:15)
--- NOTE | 2025-04-19 08:45 | W.PN.UPDATE ---
Update Note
Progress Note Update
79-year-old male with a RIGHT periprosthetic shoulder fracture. Appreciate Cardiology and primary teams; per Cardiology patient stable to proceed with the OR next week. Was on IV Heparin per Cardiology, however discontinued due to acute anemia (Hgb
this AM 10.6). Patient reports that his right shoulder pain is controlled at rest in sling. Right shoulder and upper extremity edema and ecchymosis noted. Range of motion deferred secondary to fracture. Able to flex and extend right wrist. Radial
pulse palpable. Putty Mixer strength intact. DNVI RUE. Remain in sling. Plan for ORIF RIGHT periprosthetic proximal humerus fracture with hemiarthroplasty vs. reverse total shoulder arthroplasty with explant under the direction of Dr. Reynolds on Sunday
04/22/2025. Surgical and blood consent in chart. T&S will be requested closer to DOS. Orthopedics will follow during his admission.
[2025-04-19] MEDS: ROXICODONE 5 MG PO ×2 (09:35→16:31)
--- NOTE | 2025-04-19 10:16 | W.PN.HOSP.TC ---
Today's Communication/Plan
-
Continue to hold heparin.
Continue with pain regimen.
OR on Sunday.
Assessment / Plan
Assessment / Plan
Mechanical fall leading to right humerus complicated periprosthetic fracture.
Continue with pain control . Orthopedic involved-Will need to wait for the hardware to arrive for surgical correction.Tentative plans for OR on 04/22.
Leave the right arm in the sling. Continue PT OT eval.
Frequent falls secondary to ambulatory dysfunction-ongoing movement disorder neurology evaluation. Continue with PT OT
Orthostatic hypotension-persistent orthostatic BP drop with symptoms. Increased midodrine dose. TSH and cortisol are ok.
History of dementia on donepezil-watch for .
Paroxysmal atrial fibrillation-patient in sinus rhythm .EKG with nonspecific ST-T changes but no acute ST-T changes. Follow on telemetry. Continue the beta-jaycee. With frequent falls I suspect he is not a candidate for Chronic AC going forward.
Hold for now. Due to TIAs on IV heparin in interim. Cards following.
Appt cards input regarding pre op cardiac clearance. ECHO 05/17 shows EF 55 to 60%, mild AR, trace MR, mild TR. cleared for OR.
Acute anemia-significant drop in H&H from 14.6-10.2 noted. No obvious external bleeding. Negative heme test stools. Concerned about bleeding into the soft tissue in the right shoulder which is more swollen and more extremely painful. Continue to
hold heparin due to active bleeding till yesterday. H&H now stable.
Hypertension-continue with losartan with parameters
BPH-continue finasteride
Full code
DVT prophylaxis - Seq teds for now till bleeding issue is corrected
DW Ortho
Portions of this chart may have been created with voice recognition software. Occasional wrong word or 'sound alike' substitutions may have occurred due to the inherent limitations of voice recognition software.
Anticipated Discharge: > 48 hours
Subjective/Interval History
-
Date of Service: April 19, 2025
Right shoulder pain is okay when he does not mow the much.
Denies any tingling numbness in the right hand.
No fever or chills.
No chest pain or shortness of breath. Not constipated.
Objective Data
-
Labs:
Laboratory Results
04/19/25 04/19/25
01:15 EST 05:54
WBC 6.9
Hgb Cancelled 10.6 L
Hct Cancelled 32.1 L
Plt Count 136
Sodium 138
Potassium 4.0
Chloride 105
Carbon Dioxide 30
BUN 18
Creatinine 0.8
Glucose 85
Calcium 9.0
Vital Signs:
Vital Signs
Temp Pulse Resp BP Pulse Ox
97.8 F 77 18 154/71 99
04/19/25 07:50 04/19/25 08:12 04/19/25 07:50 04/19/25 08:12 04/19/25 07:50
I&O
04/18/25 04/19/25 04/20/25
06:59 05:59 06:59
Intake Total 600 / 600 480 / 480
Output Total 50 / 50 1400 / 1400
Balance 550 / 550 -920 / -920
Physical Exam
-
General: No Apparent Distress
Respiratory: Non Labored Respirations; Negative Accessory Resp Muscle Use
Cardiac: Regular Rhythm and S1/S2; Negative Tachycardic
GI: Soft
Musculoskeletal: Edema, Right Lower Extrem (Right shoulder in the right arm all very swollen and warm to touch. Bruising underneath the skin noted more medially.)
Neuro: AO x 3
Psych: Calm
Data Reviewed
-
Labs: Labs Reviewed by me
[2025-04-19] MEDS: PRAVACHOL 40 MG PO (21:51)
[2025-04-19] MEDS: ARICEPT 10 MG PO (21:51)
[2025-04-20] VITALS (7 sets, daily range): BP systolic 99–157; BP diastolic 53–67; PULSE 87–90
[2025-04-20] MEDS: TYLENOL 650 MG PO ×5 (00:06→20:59)
[2025-04-20] MEDS: TYLENOL PO (05:00)
[2025-04-20 07:25] LABS: Hematocrit 31.0 % (39.0-52.0); Hemoglobin 10.4 g/dL (13.0-18.0); Mean Corp Hgb Conc. 33.5 g/dL (33.0-37.0); Mean Corpuscular Volume 95.7 fL (80.0-94.0); Platelet Count 139 10^3/uL (130-400); Red Cell Dist. Width 13.8 % (11.5-14.5)
[2025-04-20] MEDS: ROXICODONE 5 MG PO (08:42)
[2025-04-20] MEDS: TOPROL XL 25 MG PO (08:43)
[2025-04-20] MEDS: ZOLOFT 100 MG PO (08:43)
[2025-04-20] MEDS: MYRBETRIQ EXTENDED RELEASE 50 MG PO (08:45)
[2025-04-20] MEDS: COLACE 100 MG PO (08:46)
[2025-04-20] MEDS: SENOKOT 17.2 MG PO (08:46)
[2025-04-20] MEDS: PROSCAR 5 MG PO (08:47)
[2025-04-20] MEDS: FEOSOL 325 MG PO (08:47)
--- NOTE | 2025-04-20 08:54 | W.PN.UPDATE ---
Update Note
Progress Note Update
79-year-old male with a RIGHT periprosthetic shoulder fracture. Appreciate Cardiology and primary teams; per Cardiology patient stable to proceed with the OR next week. Was on IV Heparin per Cardiology, however discontinued due to acute anemia (Hgb
this AM 10.2). Patient reports that his right shoulder pain is controlled at rest in sling. Right shoulder and upper extremity edema and ecchymosis noted. Range of motion deferred secondary to fracture. Able to flex and extend right wrist. Radial
pulse palpable. Labor Contract Analyst strength intact. DNVI RUE. Remain in sling. Plan for ORIF RIGHT periprosthetic proximal humerus fracture with hemiarthroplasty vs. reverse total shoulder arthroplasty with explant under the direction of Dr. Reynolds on Sunday
May 12. Surgical and blood consent in chart. T&S will be requested closer to DOS. Orthopedics will follow during his admission.
--- NOTE | 2025-04-20 13:50 | W.PN.HOSP.TC ---
Today's Communication/Plan
-
Continue to hold heparin.
Continue with pain regimen.
OR on Sunday
Assessment / Plan
Assessment / Plan
Assessment:
Traumatic (from mechanical fall) acute R humerus periprosthetic complicated fracture
- continue sling and pain control
- OR with Orthopedics on 04/22: hemiarthroplasty vs. reverse total shoulder arthroplasty with explant
Frequent falls with ambulatory dysfunction
Orthostatic hypotension
- continue ongoing neurology evaluation for movement disorders
- continue Midodrine TID; stockings
- PT/OT
History of dementia
- on donepezil
- watch for .
Parox A. Fib
- patient in NSR
- continue BB
- holding Eliquis. Initially started IV heparin but concern for intra-articular bleed so on hold
- DCA cards following for pre-op evaluation. ECHO 05/17 shows EF 55 to 60%, mild AR, trace MR, mild TR
hx of TIAs
Acute anemia
- significant drop in H&H from 14.6-10.2 noted. No obvious external bleeding. Negative heme test stools. concerned about bleeding into the soft tissue in the right shoulder which is more swollen and more extremely painful.
- continue to hold heparin due to active bleeding concerns while on IV heparin. H&H now stable.
Essential HTN
- continue with losartan with parameters
BPH
- continue finasteride
DVT ppx: SCDs
Code: Full
Anticipated Discharge: > 48 hours
Subjective/Interval History
-
Date of Service: April 20, 2025
pain more controlled today
Hb stable 10.4
Objective Data
-
Labs:
Laboratory Results
04/20/25
07:14
WBC 6.7
Hgb 10.4 L
Hct 31.0 L
Plt Count 139
Vital Signs:
Vital Signs
Temp Pulse Resp BP Pulse Ox
97.9 F 80 16 134/67 98
04/20/25 11:30 04/20/25 11:30 04/20/25 11:30 04/20/25 11:30 04/20/25 11:30
I&O
04/19/25 04/20/25 04/21/25
05:59 06:59 06:59
Intake Total 480 / 480 1860 / 1860
Output Total 1400 / 1400 1070 / 1070
Balance -920 / -920 790 / 790
Physical Exam
-
General: No Apparent Distress
HEENT: Normocephalic and Atraumatic
Respiratory: Negative Wheezes
Cardiac: Regular Rhythm and S1/S2
GI: Soft
Musculoskeletal: Other (RUE in sling)
Neuro: AO x 3
Psych: Calm
Data Reviewed
-
Total Time Spent with Patient (in minutes): 42
Labs: Labs Reviewed by me
--- NOTE | 2025-04-20 14:40 | W.PN.CARDCBS ---
Today's Communication / Plan
-
Stable cardiac status
Stop losartan
Decrease midodrine
Continue to hold anticoagulation
Continue on telemetry
For surgery April 22
Impression / Plan
-
PCP: Dr. Mccain
Cardiology: Dr. Sinclair
Impression:
Admitted with fall and right humerus periprosthetic fracture 04/15/2025
Ambulatory dysfunction and falls prior to admission
Right humerus periprosthetic fracture 04/15/2025
Previous right NINA and TKA
Paroxysmal A-fib
Chronic Eliquis OAC, last dose 04/14/2025 PM
HTN
Hyperlipidemia
Vascular dementia
Echo 04/16/2025: EF 55 to 60%, mild AI, aortic sclerosis, PA pressure 25
Plan:
He remains in sinus rhythm.
He has had increased bleeding in the shoulder, heparin has been discontinued. Given that he is in sinus rhythm, stroke risk remains low.
Hemoglobin is stable.
He remains on midodrine 10 mg 3 times daily blood pressure is relatively hypertensive. Admission dose of midodrine had been 2.5 3 times daily.
He is still receiving losartan, and in some ways it makes little sense to continue both antihypertensives and midodrine. Will cut midodrine to 5 mg 3 times daily and stop losartan.
Will keep on telemetry.
Plan is for surgery April 22.
Patient came to the ER after a fall at home and is being admitted with right humerus periprosthetic fracture and cardiology is consulted for preoperative cardiovascular risk stratification. Patient and daughter help with HPI, patient awoke to use
the bathroom at about 0400 this morning and fell in his bedroom onto a carpeted surface. The patient's called the nonemergency number and paramedics were able to get the patient back into bed. Later this today the patient was feeling better
and got up to use the bathroom and once in the bathroom he fell again landing on his right shoulder and fell hitting a hard tile floor. Patient is being admitted with a right humerus periprosthetic fracture and will require operative repair that is
currently scheduled for 04/22/2025. Patient's daughter reports he has had 11 falls, about 1 a month over the last year. Patient saw a neurologist and has vascular dementia, but he has also had some features concerning for Parkinson's disease.
Patient is waiting for an evaluation by a neurologist that is a movement specialist coming up in May. Patient does not complete vigorous activity, he denies any chest pain or SOB with walking around his home, he never has any resting symptoms.
Patient follows with a tire trimmer hand out of [facility] and he thinks that he saw them within the last few months, I have called for records.
Progress Note - Dining Car Steward
Subjective
Date of Service: April 20, 2025:
79-year-old man admitted with right periprosthetic shoulder fracture complicated by bleeding necessitating discontinuation of anticoagulation
PMH: Paroxysmal A-fib,, hypertension, hyperlipidemia, vascular dementia, suspected movement disorder, orthostatic hypotension
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
Current medications Ancef, tranexamic acid, donepezil, iron, losartan 50 mg a day, metoprolol ER 25 mg a day, pravastatin 40 mg at bedtime, sertraline 100 mg a day, Proscar 5 mg a day, Myrbetriq, Colace, Senokot, midodrine 10 3 times daily
134/67, pulse 80, respiratory rate 16, afebrile, arm in sling seems relatively comfortable, daughter at bedside, head neck exam unremarkable lungs are relatively clear, no obvious murmurs, regular rate and rhythm,
Telemetry: No A-fib
Echo March 2025: EF 55-60%, mild aortic regurgitation, mild LVH, normal RV, aortic sclerosis, MAC with trace MR, normal pulmonary artery pressure
ECG: Sinus tach, nonspecific ST abnormality
Hemoglobin 10.4, white count 6.7, platelets 139
BUN and creatinine 18 and 0.8 as of April 19, potassium 4, TSH and cortisol normal
Objective
Labs:
04/20/25 07:14
04/19/25 05:54
Labs
Hgb 10.4 g/dL (13.0-18.0) L 04/20/25 07:14
Hct 31.0 % (39.0-52.0) L 04/20/25 07:14
Plt Count 139 10^3/uL (130-400) 04/20/25 07:14
APTT 103.3 Sec (23.4-35.0) H 04/18/25 06:17
Sodium 138 mmol/L (135-145) 04/19/25 05:54
Potassium 4.0 mmol/L (3.5-5.1) 04/19/25 05:54
BUN 18 mg/dl (9-20) 04/19/25 05:54
Creatinine 0.8 mg/dL (0.7-1.3) 04/19/25 05:54
Glucose 85 mg/dl (70-99) 04/19/25 05:54
Vital Signs and I&O:
Vital Signs
Temp Pulse Resp BP Pulse Ox
36.6 C 80 16 134/67 98
04/20/25 11:30 04/20/25 11:30 04/20/25 11:30 04/20/25 11:30 04/20/25 11:30
Vital Signs
Temp Pulse Resp BP Pulse Ox
36.6 C 80 16 134/67 98
04/20/25 11:30 04/20/25 11:30 04/20/25 11:30 04/20/25 11:30 04/20/25 11:30
Intake & Output
04/18/25 04/19/25 04/20/25 04/21/25
07:59 06:59 07:59 07:59
Intake Total 600 / 600 480 / 480 1860 / 1860
Output Total 50 / 50 1400 / 1400 1070 / 1070
Balance 550 / 550 -920 / -920 790 / 790
Physical Exam
Physical Exam
See above
[2025-04-20] MEDS: COLACE PO (20:58)
[2025-04-20] MEDS: SENOKOT PO (20:58)
[2025-04-20] MEDS: ARICEPT 10 MG PO (20:58)
[2025-04-20] MEDS: PRAVACHOL 40 MG PO (20:58)
[2025-04-21] VITALS (8 sets, daily range): BP systolic 85–154; BP diastolic 43–76; PULSE 80–88; O2SAT 97
[2025-04-21] MEDS: ROXICODONE 5 MG PO ×2 (00:08→20:15)
[2025-04-21] MEDS: TYLENOL 650 MG PO ×5 (00:08→22:08)
[2025-04-21] MEDS: TYLENOL PO (05:00)
--- NOTE | 2025-04-21 08:12 | W.PN.UPDATE ---
Update Note
Progress Note Update
79-year-old male with a RIGHT periprosthetic shoulder fracture. Appreciate Cardiology and primary teams; per Cardiology patient stable to proceed with the OR tomorrow. IV heparin on hold. Patient reports that his right shoulder pain is controlled
at rest in sling. Right shoulder and upper extremity edema and ecchymosis noted. Range of motion deferred secondary to fracture. Able to flex and extend right wrist. , but remains uncomfortable when attempting to move position. Diffuse swelling
and ecchymosis of right shoulder. Radial pulse palpable. Olericulture Teacher strength intact. DNVI RUE. Remain in sling. Plan for ORIF RIGHT periprosthetic proximal humerus fracture with hemiarthroplasty vs. reverse total shoulder arthroplasty with explant under
the direction of Dr. Reynolds on Sunday. Surgical and blood consent in chart. T&S ordered. IV abx and irrigation hand stone polisher to OR. Orthopedics will follow during his admission.
[2025-04-21] MEDS: SENOKOT 17.2 MG PO ×2 (08:59→20:15)
[2025-04-21] MEDS: TOPROL XL 25 MG PO (09:00)
[2025-04-21] MEDS: PROSCAR 5 MG PO (09:00)
[2025-04-21] MEDS: COLACE 100 MG PO ×2 (09:00→20:15)
[2025-04-21] MEDS: ZOLOFT 100 MG PO (09:01)
[2025-04-21] MEDS: FEOSOL 325 MG PO (09:01)
[2025-04-21 09:08] LABS: Hematocrit 31.8 % (39.0-52.0); Hemoglobin 10.9 g/dL (13.0-18.0); Mean Corp Hgb Conc. 34.3 g/dL (33.0-37.0); Mean Corpuscular Volume 97.0 fL (80.0-94.0); Platelet Count 143 10^3/uL (130-400); Red Cell Dist. Width 14.0 % (11.5-14.5)
[2025-04-21 09:39] LABS: Blood Urea Nitrogen 22 mg/dl (9-20); Calcium 9.0 mg/dl (8.4-10.2); Carbon Dioxide 23 mmol/L (22-30); Chloride 104 mmol/L (98-107); Estimated Creatinine Clearance 87 ml/min; Glucose 100 mg/dl (70-99); Potassium 3.8 mmol/L (3.5-5.1); Sodium 132 mmol/L (135-145); eGFR > 60.00
[2025-04-21] MEDS: MYRBETRIQ EXTENDED RELEASE 50 MG PO (10:01)
--- NOTE | 2025-04-21 12:38 | W.PN.CARDCBS ---
Today's Communication / Plan
-
No new cardiac recommendations
Proceed as planned the OR in a.m.
Resume Eliquis postoperatively when safe from surgical standpoint
Impression / Plan
-
PCP: Dr. Mccain
Cardiology: Dr. Sinclair
Impression:
Admitted with fall and right humerus periprosthetic fracture 04/15/2025
Ambulatory dysfunction and falls prior to admission
Right humerus periprosthetic fracture 04/15/2025
Previous right NINA and TKA
Paroxysmal A-fib
Chronic Eliquis OAC, last dose 04/14/2025 PM
HTN
Hyperlipidemia
Vascular dementia
Echo 04/16/2025: EF 55 to 60%, mild AI, aortic sclerosis, PA pressure 25
Plan:
No new complaints. He appears stable from a cardiac standpoint.
He remains in sinus rhythm.
No new recommendations. Okay to proceed 2 OR tomorrow at acceptable perioperative cardiac risk.
Resume Eliquis postop when safe from a surgical standpoint.
Patient came to the ER after a fall at home and is being admitted with right humerus periprosthetic fracture and cardiology is consulted for preoperative cardiovascular risk stratification. Patient and daughter help with HPI, patient awoke to use
the bathroom at about 0400 this morning and fell in his bedroom onto a carpeted surface. The patient's called the nonemergency number and paramedics were able to get the patient back into bed. Later this today the patient was feeling better
and got up to use the bathroom and once in the bathroom he fell again landing on his right shoulder and fell hitting a hard tile floor. Patient is being admitted with a right humerus periprosthetic fracture and will require operative repair that is
currently scheduled for 04/22/2025. Patient's daughter reports he has had 11 falls, about 1 a month over the last year. Patient saw a neurologist and has vascular dementia, but he has also had some features concerning for Parkinson's disease.
Patient is waiting for an evaluation by a neurologist that is a movement specialist coming up in May. Patient does not complete vigorous activity, he denies any chest pain or SOB with walking around his home, he never has any resting symptoms.
Patient follows with a canopy stringer out of [facility] and he thinks that he saw them within the last few months, I have called for records.
Progress Note - Manager Development
Subjective
Date of Service: April 21, 2025
No new complaints.
Objective
Labs:
04/21/25 08:44
04/21/25 08:44
Labs
Hgb 10.9 g/dL (13.0-18.0) L 04/21/25 08:44
Hct 31.8 % (39.0-52.0) L 04/21/25 08:44
Plt Count 143 10^3/uL (130-400) 04/21/25 08:44
APTT 103.3 Sec (23.4-35.0) H 04/18/25 06:17
Sodium 132 mmol/L (135-145) L 04/21/25 08:44
Potassium 3.8 mmol/L (3.5-5.1) 04/21/25 08:44
BUN 22 mg/dl (9-20) H 04/21/25 08:44
Creatinine 0.7 mg/dL (0.7-1.3) 04/21/25 08:44
Glucose 100 mg/dl (70-99) H 04/21/25 08:44
Vital Signs and I&O:
Vital Signs
Temp Pulse Resp BP Pulse Ox
36.8 C 82 18 150/68 97
04/21/25 12:14 04/21/25 12:14 04/21/25 12:14 04/21/25 12:14 04/21/25 12:14
Vital Signs
Temp Pulse Resp BP Pulse Ox
36.8 C 82 18 150/68 97
04/21/25 12:14 04/21/25 12:14 04/21/25 12:14 04/21/25 12:14 04/21/25 12:14
Intake & Output
04/19/25 04/20/25 04/21/25 04/22/25
06:59 07:59 07:59 07:59
Intake Total 480 / 480 1860 / 1860 660 / 660
Output Total 1400 / 1400 1070 / 1070 400 / 400 200 / 200
Balance -920 / -920 790 / 790 260 / 260 -200 / -200
Physical Exam
Physical Exam
Exam unchanged clear lungs regular rate and rhythm, abdomen benign extremities without clubbing cyanosis or edema
--- NOTE | 2025-04-21 12:55 | W.PN.HOSP.TC ---
Today's Communication/Plan
-
OR with Orthopedics on 04/22: hemiarthroplasty vs. reverse total shoulder arthroplasty with explant
Assessment / Plan
Assessment / Plan
Assessment:
Traumatic (from mechanical fall) acute R humerus periprosthetic complicated fracture
- continue sling and pain control
- OR with Orthopedics on 04/22: hemiarthroplasty vs. reverse total shoulder arthroplasty with explant
Frequent falls with ambulatory dysfunction
Orthostatic hypotension
- continue ongoing neurology evaluation for movement disorders
- continue Midodrine TID; stockings
- PT/OT
History of dementia
- on donepezil
- watch for .
Parox A. Fib
- patient in NSR
- continue BB
- holding Eliquis. Initially started IV heparin but concern for intra-articular bleed so on hold
- DCA cards following for pre-op evaluation. ECHO 05/17 shows EF 55 to 60%, mild AR, trace MR, mild TR
hx of TIAs
Acute anemia
- significant drop in H&H from 14.6-10.2 noted. No obvious external bleeding. Negative heme test stools. concerned about bleeding into the soft tissue in the right shoulder which is more swollen and more extremely painful.
- continue to hold heparin due to active bleeding concerns while on IV heparin. H&H now stable.
Essential HTN
- Losartan stopped by Cards
BPH
- continue finasteride
DVT ppx: SCDs
Code: Full
Anticipated Discharge: > 48 hours
Subjective/Interval History
-
Date of Service: April 21, 2025
resting comfortably, no new complaints
Objective Data
-
Labs:
Laboratory Results
04/21/25
08:44
WBC 6.2
Hgb 10.9 L
Hct 31.8 L
Plt Count 143
Sodium 132 L
Potassium 3.8
Chloride 104
Carbon Dioxide 23
BUN 22 H
Creatinine 0.7
Glucose 100 H
Calcium 9.0
Vital Signs:
Vital Signs
Temp Pulse Resp BP Pulse Ox
98.3 F 82 18 150/68 97
04/21/25 12:14 04/21/25 12:14 04/21/25 12:14 04/21/25 12:14 04/21/25 12:14
I&O
04/20/25 04/21/25 04/22/25
06:59 06:59 06:59
Intake Total 1860 / 1860 660 / 660
Output Total 1070 / 1070 400 / 400 200 / 200
Balance 790 / 790 260 / 260 -200 / -200
Physical Exam
-
General: No Apparent Distress
HEENT: Normocephalic and Atraumatic
Respiratory: Negative Wheezes
Cardiac: Regular Rhythm and S1/S2
GI: Soft and Nontender
Musculoskeletal: Other (RUE sling)
Neuro: AO x 3
Hematologic / Lymphatic: No Lymphadenopathy
Psych: Calm
Data Reviewed
-
Total Time Spent with Patient (in minutes): 41
Labs: Labs Reviewed by me
--- NOTE | 2025-04-21 17:01 | CM ---
Pt has hypotension.
PT OT indicated SNF .
As per care [facility] . [facility] no beds.
Will check will patient his preference
PLAN To SNf
[2025-04-21] MEDS: PRAVACHOL 40 MG PO (22:09)
[2025-04-21] MEDS: ARICEPT 10 MG PO (22:09)
[2025-04-22] VITALS (19 sets, daily range): BP systolic 88–128; BP diastolic 47–75
[2025-04-22] MEDS: ROXICODONE 5 MG PO ×2 (05:18→09:38)
[2025-04-22] MEDS: TYLENOL 650 MG PO ×4 (05:18→21:00)
[2025-04-22 07:09] LABS: Hematocrit 31.1 % (39.0-52.0); Hemoglobin 10.5 g/dL (13.0-18.0); Mean Corp Hgb Conc. 33.8 g/dL (33.0-37.0); Mean Corpuscular Volume 97.5 fL (80.0-94.0); Platelet Count 162 10^3/uL (130-400); Red Cell Dist. Width 14.3 % (11.5-14.5)
[2025-04-22 07:25] LABS: Blood Urea Nitrogen 26 mg/dl (9-20); Calcium 8.9 mg/dl (8.4-10.2); Carbon Dioxide 28 mmol/L (22-30); Chloride 104 mmol/L (98-107); Estimated Creatinine Clearance 76 ml/min; Glucose 88 mg/dl (70-99); Potassium 4.0 mmol/L (3.5-5.1); Sodium 137 mmol/L (135-145); eGFR > 60.00
--- NOTE | 2025-04-22 08:48 | W.PN.HOSP.TC ---
Today's Communication/Plan
-
OR with Orthopedics on 04/22: hemiarthroplasty vs. reverse total shoulder arthroplasty with explant
post-op PT/OT and titration of midodrine for orthostasis
Assessment / Plan
Assessment / Plan
Assessment:
Traumatic (from mechanical fall) acute R humerus periprosthetic complicated fracture
- continue sling and pain control
- OR with Orthopedics on 04/22: hemiarthroplasty vs. reverse total shoulder arthroplasty with explant
Frequent falls with ambulatory dysfunction
Orthostatic hypotension
- continue ongoing neurology evaluation for movement disorders; possible Parkinson state with noted shuffling per family
- continue Midodrine 5mg TID; may need further titration
- continue compression stockings
- PT/OT post-op
History of dementia
- on donepezil
- watch for .
Parox A. Fib
- patient in NSR
- continue BB
- holding Eliquis. Initially started IV heparin but concern for intra-articular bleed so on hold
- DCA cards following for pre-op evaluation. ECHO 05/17 shows EF 55 to 60%, mild AR, trace MR, mild TR
hx of TIAs
Acute anemia
- significant drop in H&H from 14.6-10.2 noted. No obvious external bleeding. Negative heme test stools. concerned about bleeding into the soft tissue in the right shoulder which is more swollen and more extremely painful.
- continue to hold heparin due to active bleeding concerns while on IV heparin. H&H now stable >10.0
Essential HTN
- Losartan stopped by Cards
BPH
- continue finasteride
DVT ppx: SCDs
Code: Full
Anticipated Discharge: > 48 hours
Subjective/Interval History
-
Date of Service: April 22, 2025
noted orthostasis with PT yesterday, as low as 80s - with symptomatic dizziness
for OR today
Objective Data
-
Labs:
Laboratory Results
04/22/25
06:45
WBC 5.6
Hgb 10.5 L
Hct 31.1 L
Plt Count 162
Sodium 137
Potassium 4.0
Chloride 104
Carbon Dioxide 28
BUN 26 H
Creatinine 0.8
Glucose 88
Calcium 8.9
Vital Signs:
Vital Signs
Temp Pulse Resp BP Pulse Ox
98.4 F 75 16 128/61 96
04/22/25 07:00 04/22/25 07:00 04/22/25 07:00 04/22/25 07:00 04/22/25 07:00
I&O
04/21/25 04/22/25 04/23/25
06:59 06:59 06:59
Intake Total 660 / 660
Output Total 400 / 400 500 / 500
Balance 260 / 260 -500 / -500
Physical Exam
-
General: No Apparent Distress
HEENT: Normocephalic and Atraumatic
Respiratory: Negative Wheezes
Cardiac: Regular Rhythm and S1/S2
GI: Soft and Nontender
Musculoskeletal: Other (RUE sling)
Neuro: AO x 3
Psych: Calm
Data Reviewed
-
Total Time Spent with Patient (in minutes): 44
Labs: Labs Reviewed by me
[2025-04-22] MEDS: MYRBETRIQ EXTENDED RELEASE PO (08:49)
[2025-04-22] MEDS: SENOKOT 17.2 MG PO ×2 (08:50→21:51)
[2025-04-22] MEDS: TOPROL XL 25 MG PO (08:50)
[2025-04-22] MEDS: COLACE 100 MG PO ×2 (08:50→21:51)
[2025-04-22] MEDS: PROSCAR 5 MG PO (08:50)
[2025-04-22] MEDS: ZOLOFT 100 MG PO (08:51)
[2025-04-22] MEDS: FEOSOL 325 MG PO (08:51)
[2025-04-22] MEDS: TYLENOL PO ×2 (12:00)
--- NOTE | 2025-04-22 16:22 | CM ---
Patient out of room to OR. Patient still interested in SNF at [place] or [facility]. Per patient [facility] not responded and [facility] no beds until next week. Patient requested information about Acute Rehab and indicated that she
would talk to physician/therapist about recommendations. CM will continue to follow for discharge planning needs.
Plan; SNF pending therapy recommendations
[2025-04-22] MEDS: NON-FORMULARY ITEM 1 UNIT PO (17:44)
--- NOTE | 2025-04-22 17:47 | PTCARENOTE ---
Pt returned from PACU in bed. PRBCs infusing via gravity, started in PACU and being recorded on pink unit issue/transfusion form per protocol. RUE able to wiggle fingers, NWB maintained in sling. R shoulder mepilex C/D/I. Bed locked and in the
lowest position, safety maintained. Call hugo within reach, family at bedside/
--- NOTE | 2025-04-22 18:43 | PTCARENOTE ---
2nd unit PRBC transfusion completed. See tranfusion form for documentation. Care ongoing.
[2025-04-22 18:58] LABS: Urine Character Clear (Clear)
[2025-04-22 19:13] LABS: Urine Red Blood Cell 0-2 /HPF (0-2); Urine White Cell 0-2 /HPF (0-5)
[2025-04-22] MEDS: ANCEF 5 IV (21:52)
[2025-04-22] MEDS: PRAVACHOL 40 MG PO (21:53)
[2025-04-22] MEDS: ARICEPT 10 MG PO (21:53)
[2025-04-23] VITALS (9 sets, daily range): BP systolic 89–150; BP diastolic 43–66; PULSE 90; O2SAT 96
[2025-04-23] MEDS: TYLENOL PO (00:56)
[2025-04-23] MEDS: ANCEF 5 IV (03:44)
[2025-04-23] MEDS: TYLENOL 650 MG PO ×5 (03:44→19:59)
[2025-04-23] MEDS: ROXICODONE 5 MG PO ×3 (05:57→20:00)
[2025-04-23 06:33] LABS: Hematocrit 31.2 % (39.0-52.0); Hemoglobin 10.4 g/dL (13.0-18.0); Mean Corp Hgb Conc. 33.3 g/dL (33.0-37.0); Mean Corpuscular Volume 91.5 fL (80.0-94.0); Platelet Count 162 10^3/uL (130-400); Red Cell Dist. Width 17.1 % (11.5-14.5)
--- NOTE | 2025-04-23 06:59 | W.PN.ORTHO ---
Today's Communication / Plan
-
Sling with abductor pillow
Nonweightbearing right upper extremity
PT/OT
Hold chemical DVT prophylaxis for 3 days to allow bleeding to stabilize (D/W medical team,possibly Lovenox)-mechanical devices for now
Skin clip removal 2 weeks postop
Orthopedics to follow along
Assessment
.
Distal Motor Intact: Yes
Dressing:
Clean, dry and intact.
Plan
.
Surgery / Date: Revision RTSA 04/21 Ritting
DVT Prophylaxis: Lovenox
Activity:
Out of bed.
PT/OT
Discharge Plan: SNF
Subjective
.
.:
Patient resting comfortably. This morning he noted a little more pain so took an oxycodone 5 minutes ago.
Vital Signs and Labs
.
Vital Signs and Labs:
Lab Results
04/23/25 05:30
Temp Pulse Resp BP Pulse Ox
98.1 F 81 17 116/54 96
04/23/25 03:35 04/23/25 03:35 04/23/25 03:35 04/23/25 03:35 04/23/25 03:35
[2025-04-23 07:00] LABS: Blood Urea Nitrogen 30 mg/dl (9-20); Calcium 8.5 mg/dl (8.4-10.2); Carbon Dioxide 23 mmol/L (22-30); Chloride 105 mmol/L (98-107); Estimated Creatinine Clearance 68 ml/min; Glucose 102 mg/dl (70-99); Potassium 4.6 mmol/L (3.5-5.1); Sodium 134 mmol/L (135-145); eGFR > 60.00
--- NOTE | 2025-04-23 08:31 | W.PN.CARDCBS ---
Today's Communication / Plan
-
Restart Eliquis in 3 days per orthopedics
Stable cardiology status
Sign off
Impression / Plan
-
PCP: Dr. Mccain
Cardiology: Dr. Sinclair
Impression:
Admitted with fall and right humerus periprosthetic fracture 04/15/2025
Ambulatory dysfunction and falls prior to admission
Right humerus periprosthetic fracture 04/15/2025
Previous right NINA and TKA
Paroxysmal A-fib
Chronic Eliquis OAC, last dose 04/14/2025 PM
HTN
Hyperlipidemia
Vascular dementia
Echo 04/16/2025: EF 55 to 60%, mild AI, aortic sclerosis, PA pressure 25
Plan:
Stable from cardiology viewpoint.
Orthopedics wants to wait 3 days to restart Eliquis.
Discussed with primary service
Will sign off, call with questions.
Patient came to the ER after a fall at home and is being admitted with right humerus periprosthetic fracture and cardiology is consulted for preoperative cardiovascular risk stratification. Patient and daughter help with HPI, patient awoke to use
the bathroom at about 0400 this morning and fell in his bedroom onto a carpeted surface. The patient's called the nonemergency number and paramedics were able to get the patient back into bed. Later this today the patient was feeling better
and got up to use the bathroom and once in the bathroom he fell again landing on his right shoulder and fell hitting a hard tile floor. Patient is being admitted with a right humerus periprosthetic fracture and will require operative repair that is
currently scheduled for 04/22/2025. Patient's daughter reports he has had 11 falls, about 1 a month over the last year. Patient saw a neurologist and has vascular dementia, but he has also had some features concerning for Parkinson's disease.
Patient is waiting for an evaluation by a neurologist that is a movement specialist coming up in May. Patient does not complete vigorous activity, he denies any chest pain or SOB with walking around his home, he never has any resting symptoms.
Patient follows with a cement finisher helper out of [facility] and he thinks that he saw them within the last few months, I have called for records.
Progress Note - [facility]
Subjective
Date of Service: April 23, 2025
No chest pain or shortness of breath
Objective
Labs:
04/23/25 05:30
04/23/25 05:30
Labs
Hgb 10.4 g/dL (13.0-18.0) L 04/23/25 05:30
Hct 31.2 % (39.0-52.0) L 04/23/25 05:30
Plt Count 162 10^3/uL (130-400) 04/23/25 05:30
APTT 103.3 Sec (23.4-35.0) H 04/18/25 06:17
Sodium 134 mmol/L (135-145) L 04/23/25 05:30
Potassium 4.6 mmol/L (3.5-5.1) 04/23/25 05:30
BUN 30 mg/dl (9-20) H 04/23/25 05:30
Creatinine 0.9 mg/dL (0.7-1.3) 04/23/25 05:30
Glucose 102 mg/dl (70-99) H 04/23/25 05:30
Vital Signs and I&O:
Vital Signs
Temp Pulse Resp BP Pulse Ox
98.5 F 87 17 100/43 96
04/23/25 08:11 04/23/25 08:11 04/23/25 08:11 04/23/25 08:11 04/23/25 08:11
Vital Signs
Temp Pulse Resp BP Pulse Ox
98.5 F 87 17 100/43 96
04/23/25 08:11 04/23/25 08:11 04/23/25 08:11 04/23/25 08:11 04/23/25 08:11
Intake & Output
04/21/25 04/22/25 04/23/25 04/24/25
06:59 06:59 06:59 06:59
Intake Total 660 / 660 1130 / 1130
Output Total 400 / 400 500 / 500 450 / 450
Balance 260 / 260 -500 / -500 680 / 680
Physical Exam
Physical Exam
General: Well developed, well nourished in NAD.
Neck: Supple, no JVD, HJR, carotids +2 B/L, no bruits bilaterally.
Heart: Non displaced PMI, RRR, no murmurs, No S3, S4, no rubs.
Lungs: Clear to auscultation bilaterally, no wheeze, rhonchi, rubs bilaterally,
normal expiratory phase.
Right shoulder ecchymoses and dressings
Extremities: No clubbing, cyanosis or edema bilaterally.
Neuro: Grossly nonfocal, awake, alert and oriented x3.
[2025-04-23] MEDS: FEOSOL 325 MG PO (08:52)
[2025-04-23] MEDS: ZOLOFT 100 MG PO (08:52)
[2025-04-23] MEDS: PROSCAR 5 MG PO (08:52)
[2025-04-23] MEDS: NON-FORMULARY ITEM 1 UNIT PO (08:53)
[2025-04-23] MEDS: SENOKOT 17.2 MG PO ×2 (08:53→19:59)
[2025-04-23] MEDS: COLACE 100 MG PO ×2 (08:53→19:59)
[2025-04-23] MEDS: TOPROL XL PO (08:53)
--- NOTE | 2025-04-23 09:02 | PTCARENOTE ---
Pt with + orthostasis while working with PT. Dr Terry notified, am midodrine dose increased and administered. BP to be rechecked. Care ongoing.
--- NOTE | 2025-04-23 11:52 | W.PN.HOSP.TC ---
Today's Communication/Plan
-
continue Midodrine and compression
monitor labs
DC planning to SNF
Assessment / Plan
Assessment / Plan
Assessment:
Traumatic (from mechanical fall) acute R humerus periprosthetic complicated fracture
- s/p reverse total shoulder arthroplasty with explant 04/22
- continue sling with abductor pillow
- Nonweightbearing right upper extremity
- continue pain control
- of note, patient did have 2 units PRBC transfused post-OR due to intra-op bleeding
Frequent falls with ambulatory dysfunction
Orthostatic hypotension
- continue ongoing neurology evaluation for movement disorders; possible Parkinson state with noted shuffling per family
- continue Midodrine 10mg TID; may need further titration
- continue compression stockings
- PT/OT - SNF recommended
History of dementia
- on donepezil
- watch for .
Parox A. Fib
- patient in NSR
- continue BB
- holding Eliquis. Initially started IV heparin but concern for intra-articular bleed so on hold
- d/w Orthopedics; holding AC for 3 days post-op
- ECHO 05/17 shows EF 55 to 60%, mild AR, trace MR, mild TR
- [facility] cards signed off
hx of TIAs
Acute anemia
- significant drop in H&H from 14.6-10.2 noted. No obvious external bleeding. Negative heme test stools. concerned about bleeding into the soft tissue in the right shoulder which is more swollen and more extremely painful.
- continue to hold heparin due to active bleeding concerns while on IV heparin. H&H now stable >10.0
Essential HTN
- Losartan stopped by Cards
BPH
- continue finasteride
DVT ppx: SCDs
Code: Full
Anticipated Discharge: > 48 hours
Subjective/Interval History
-
Date of Service: April 23, 2025
s/p reverse total shoulder arthroplasty 04/21
AM hypotension prior to midodrine dose
Hb stable 10.4 (did receive 2 units PRBC post OR)
Objective Data
-
Labs:
Laboratory Results
04/23/25
05:30
WBC 9.6
Hgb 10.4 L
Hct 31.2 L
Plt Count 162
Sodium 134 L
Potassium 4.6
Chloride 105
Carbon Dioxide 23
BUN 30 H
Creatinine 0.9
Glucose 102 H
Calcium 8.5
Vital Signs:
Vital Signs
Temp Pulse Resp BP Pulse Ox
98.5 F 94 17 106/57 96
04/23/25 08:11 04/23/25 10:12 04/23/25 08:11 04/23/25 10:12 04/23/25 08:11
I&O
04/22/25 04/23/25 04/24/25
06:59 06:59 06:59
Intake Total 1130 / 1130
Output Total 500 / 500 450 / 450
Balance -500 / -500 680 / 680
Physical Exam
-
General: No Apparent Distress
HEENT: Normocephalic and Atraumatic
Respiratory: Negative Wheezes
Cardiac: Regular Rhythm and S1/S2
GI: Soft and Nontender
Genito-urinary: No Costovertebral Tender
Musculoskeletal: Other (RUE sling)
Neuro: AO x 3
Psych: Calm
Data Reviewed
-
Total Time Spent with Patient (in minutes): 42
Labs: Labs Reviewed by me
--- NOTE | 2025-04-23 12:45 | CM ---
Addendum entered by Jada Brown 04/23/25 15:11:
[facility] called; they reported that toured the facility and wants him to go there; updated clinicals sent via [facility].
Plan is discharge on Sunday via ambulance
Addendum entered by Jada Brown 04/23/25 13:38:
Correction; daughter is at the bedside; toured [facility] and no going to tour [place]
Case Management will follow up tomorrow with family regarding placement decision
Original Note:
Per Attending, patient should be stable for DC on Sunday.
Met with at bedside; SNF preferences are [facility] and [facility].
Sent update to both facilities via [facility]
Plan: Discharge to SNF pending bed availability on Sunday
[2025-04-23] MEDS: ARICEPT 10 MG PO (21:43)
[2025-04-23] MEDS: PRAVACHOL 40 MG PO (21:43)
[2025-04-24] VITALS (7 sets, daily range): BP systolic 95–147; BP diastolic 48–63; PULSE 87
[2025-04-24] MEDS: TYLENOL PO ×2 (01:00→05:00)
--- NOTE | 2025-04-24 05:33 | W.PN.ORTHO ---
Today's Communication / Plan
-
79M POD 2 R revision rTSA for periprosthetic fx w/ Dr. Reynolds
-Sling with abductor pillow
-Nonweightbearing right upper extremity
-PT/OT
-Hold chemical DVT prophylaxis for 3 days to allow bleeding to stabilize (D/W medical team,possibly Lovenox)-mechanical devices for now
-Skin clip removal 2 weeks postop; discharge information updated
Orthopedic surtgery to follow peripherally at this time; please reengage with further questions/concerns.
Assessment
.
Distal Motor Intact: Yes
Dressing:
Clean, dry and intact.
Plan
.
Surgery / Date: Revision R rTSA 04/22 [place]
Activity:
Out of bed.
PT/OT
Subjective
.
.:
Patient resting comfortably.
Vital Signs and Labs
.
Vital Signs and Labs:
Temp Pulse Resp BP Pulse Ox
97.9 F 78 16 119/51 96
04/24/25 03:16 04/24/25 03:16 04/24/25 03:16 04/24/25 03:16 04/24/25 03:16
[2025-04-24 07:10] LABS: Hematocrit 28.2 % (39.0-52.0); Hemoglobin 9.5 g/dL (13.0-18.0); Mean Corp Hgb Conc. 33.7 g/dL (33.0-37.0); Mean Corpuscular Volume 92.2 fL (80.0-94.0); Platelet Count 156 10^3/uL (130-400); Red Cell Dist. Width 16.4 % (11.5-14.5)
[2025-04-24 07:51] LABS: Blood Urea Nitrogen 26 mg/dl (9-20); Calcium 8.5 mg/dl (8.4-10.2); Carbon Dioxide 27 mmol/L (22-30); Chloride 103 mmol/L (98-107); Estimated Creatinine Clearance 87 ml/min; Glucose 91 mg/dl (70-99); Potassium 3.8 mmol/L (3.5-5.1); Sodium 132 mmol/L (135-145); eGFR > 60.00
[2025-04-24 09:34] LABS: COVID-19 Antigen Negative (Negative)
--- NOTE | 2025-04-24 09:45 | W.PN.HOSP.TC ---
Today's Communication/Plan
-
DC likely in 24 hours to SNF
Assessment / Plan
Assessment / Plan
Assessment:
Traumatic (from mechanical fall) acute R humerus periprosthetic complicated fracture
- s/p reverse total shoulder arthroplasty with explant 04/22
- continue sling with abductor pillow
- Nonweightbearing right upper extremity
- continue pain control
- of note, patient did have 2 units PRBC transfused post-OR due to intra-op bleeding
Frequent falls with ambulatory dysfunction
Orthostatic hypotension
- continue ongoing neurology evaluation for movement disorders; possible Parkinson state with noted shuffling per family
- continue Midodrine 10mg TID; may need further titration
- continue compression stockings
- PT/OT - SNF being arranged
History of dementia
- on donepezil
- watch for .
Parox A. Fib
- patient in NSR
- continue BB
- holding Eliquis. Initially started IV heparin but concern for intra-articular bleed so on hold
- d/w Orthopedics; holding AC for 3 days post-op - resume 04/26
- ECHO 05/17 shows EF 55 to 60%, mild AR, trace MR, mild TR
- [facility] cards signed off
hx of TIAs
Acute anemia
- significant drop in H&H from 14.6-10.2 noted. No obvious external bleeding. Negative heme test stools. concerned about bleeding into the soft tissue in the right shoulder which is more swollen and more extremely painful.
- continue to hold heparin due to active bleeding concerns while on IV heparin. H&H now stable >9.0
Essential HTN
- Losartan stopped by Cards
BPH
- continue finasteride
DVT ppx: SCDs
Code: Full
Anticipated Discharge: Within 24 hours
Subjective/Interval History
-
Date of Service: April 24, 2025
resting comfortably
pain manageable per patient
Objective Data
-
Labs:
Laboratory Results
04/24/25
06:41
WBC 8.1
Hgb 9.5 L
Hct 28.2 L
Plt Count 156
Sodium 132 L
Potassium 3.8
Chloride 103
Carbon Dioxide 27
BUN 26 H
Creatinine 0.7
Glucose 91
Calcium 8.5
Vital Signs:
Vital Signs
Temp Pulse Resp BP Pulse Ox
97.9 F 82 16 147/62 97
04/24/25 07:08 04/24/25 07:08 04/24/25 07:08 04/24/25 07:08 04/24/25 07:08
I&O
04/23/25 04/24/25 04/25/25
06:59 06:59 06:59
Intake Total 1130 / 1130 420 / 420 360 / 360
Output Total 450 / 450 825 / 825
Balance 680 / 680 -405 / -405 360 / 360
Physical Exam
-
General: No Apparent Distress
HEENT: Normocephalic and Atraumatic
Respiratory: Negative Wheezes
Cardiac: Regular Rhythm and S1/S2
GI: Soft and Nontender
Musculoskeletal: Other (RUE in sling)
Neuro: AO x 3
Psych: Calm
Data Reviewed
-
Total Time Spent with Patient (in minutes): 42
Labs: Labs Reviewed by me
[2025-04-24] MEDS: MIRALAX 17 GRAMS PO (10:38)
[2025-04-24] MEDS: SENOKOT 17.2 MG PO ×2 (10:40→19:25)
[2025-04-24] MEDS: TOPROL XL 25 MG PO (10:42)
[2025-04-24] MEDS: COLACE 100 MG PO ×2 (10:43→19:29)
[2025-04-24] MEDS: ZOLOFT 100 MG PO (10:43)
[2025-04-24] MEDS: FEOSOL 325 MG PO (10:43)
[2025-04-24] MEDS: PROSCAR 5 MG PO (10:44)
[2025-04-24] MEDS: ROXICODONE 5 MG PO ×2 (10:44→15:07)
[2025-04-24] MEDS: TYLENOL 650 MG PO ×5 (10:45→23:15)
[2025-04-24] MEDS: NON-FORMULARY ITEM 1 UNIT PO (10:46)
--- NOTE | 2025-04-24 16:29 | CM ---
F.U: Patient is ready tomorrow to discharge. [place] secured bed at:
[facility]
Report: #[phone]
Fax: #[phone]
Transport is arranged for 2pm tomorrow (04/25/2025), [place] is aware as well as patient/ . IMM Completed. PLAN: SNF at [place] on 04/25.
[2025-04-24] MEDS: ARICEPT 10 MG PO (21:00)
[2025-04-24] MEDS: PRAVACHOL 40 MG PO (21:00)
[2025-04-25] MEDS: TYLENOL 650 MG PO ×2 (03:18→13:05)
[2025-04-25 06:45] LABS: Hematocrit 25.1 % (39.0-52.0); Hemoglobin 8.4 g/dL (13.0-18.0); Mean Corp Hgb Conc. 33.5 g/dL (33.0-37.0); Mean Corpuscular Volume 94.4 fL (80.0-94.0); Platelet Count 170 10^3/uL (130-400); Red Cell Dist. Width 16.2 % (11.5-14.5)
[2025-04-25 06:59] LABS: Blood Urea Nitrogen 24 mg/dl (9-20); Calcium 8.7 mg/dl (8.4-10.2); Carbon Dioxide 29 mmol/L (22-30); Chloride 103 mmol/L (98-107); Estimated Creatinine Clearance 87 ml/min; Glucose 91 mg/dl (70-99); Potassium 3.8 mmol/L (3.5-5.1); Sodium 132 mmol/L (135-145); eGFR > 60.00
[2025-04-25 07:20] VITALS: BP 125/53
[2025-04-25] MEDS: MIRALAX 17 GRAMS PO (08:21)
[2025-04-25] MEDS: ZOLOFT 100 MG PO (08:22)
[2025-04-25] MEDS: TOPROL XL 25 MG PO (08:22)
[2025-04-25] MEDS: PROSCAR 5 MG PO (08:22)
[2025-04-25] MEDS: FEOSOL 325 MG PO (08:23)
[2025-04-25] MEDS: COLACE 100 MG PO (08:24)
[2025-04-25] MEDS: SENOKOT 17.2 MG PO (08:24)
[2025-04-25] MEDS: ROXICODONE 5 MG PO ×2 (08:27→13:07)
[2025-04-25] MEDS: TYLENOL PO (08:28)
--- NOTE | 2025-04-25 10:29 | W.PN.HOSP.TC ---
Today's Communication/Plan
-
dc to SNF
resume Eliquis 2.5mg BID starting 04/26; repeat CBC Sunday to determine going back to full Eliquis.
Assessment / Plan
Assessment / Plan
Assessment:
Traumatic (from mechanical fall) acute R humerus periprosthetic complicated fracture
- s/p reverse total shoulder arthroplasty with explant 04/22
- continue sling with abductor pillow
- Nonweightbearing right upper extremity
- continue pain control
- of note, patient did have 2 units PRBC transfused post-OR due to intra-op bleeding
- Hb 8.4 at discharge. no active bleeding noted, likely reflective operative losses, d/w Orthopedics
Frequent falls with ambulatory dysfunction
Orthostatic hypotension
- continue ongoing neurology evaluation for movement disorders; possible Parkinson state with noted shuffling per family
- continue Midodrine 10mg TID; may need further titration
- continue compression stockings
- PT/OT - SNF dc today
History of dementia
- on donepezil
- watch for .
Parox A. Fib
- patient in NSR
- continue BB
- holding Eliquis. Initially started IV heparin but concern for intra-articular bleed so on hold
- d/w Orthopedics; holding AC for 3 days post-op - resume 04/26; will resume at 2.5mg BID and repeat CBC Sunday with instructions to SNF to resume Full dose if Hb improving from last hospital Hb of 8.4
- ECHO 05/17 shows EF 55 to 60%, mild AR, trace MR, mild TR
- [facility] cards signed off
hx of TIAs
Acute anemia
- significant drop in H&H from 14.6-10.2 noted. No obvious external bleeding. Negative heme test stools. concerned about bleeding into the soft tissue in the right shoulder which is more swollen and more extremely painful.
Essential HTN
- Losartan stopped by Cards
BPH
- continue finasteride
DVT ppx: SCDs
Code: Full
More than 30 minutes spent in discharge including
Final examination of the patient
Summarizing hospital stay
Instructions for continuing care to all relevant caregivers
Preparation of discharge records, prescriptions, and referral forms
Total time spent (in minutes): 41
Anticipated Discharge: Today
Subjective/Interval History
-
Date of Service: April 25, 2025
no complaints at present
Hb 8.4
Objective Data
-
Labs:
Laboratory Results
04/25/25
06:18
WBC 7.1
Hgb 8.4 L
Hct 25.1 L
Plt Count 170
Sodium 132 L
Potassium 3.8
Chloride 103
Carbon Dioxide 29
BUN 24 H
Creatinine 0.7
Glucose 91
Calcium 8.7
Vital Signs:
Vital Signs
Temp Pulse Resp BP Pulse Ox
98.0 F 77 16 125/53 96
04/25/25 07:20 04/25/25 07:20 04/25/25 07:20 04/25/25 08:22 04/25/25 07:20
I&O
04/24/25 04/25/25 04/26/25
06:59 06:59 06:59
Intake Total 420 / 420 1080 / 1080
Output Total 825 / 825 800 / 800
Balance -405 / -405 280 / 280
Physical Exam
-
General: No Apparent Distress
HEENT: Normocephalic and Atraumatic
Respiratory: Negative Wheezes
Cardiac: Regular Rhythm and S1/S2
GI: Soft
Genito-urinary: No Costovertebral Tender
Musculoskeletal: Other (RUE sling)
Neuro: AO x 3
Psych: Calm
Data Reviewed
-
Total Time Spent with Patient (in minutes): 42
Labs: Labs Reviewed by me
--- NOTE | 2025-04-25 10:53 | W.DCSUMMARY ---
Discharge Summary
Discharge Data
Date of Admission: 04/15/25
Date of Discharge: 04/25/25
-
Pending Results: No
Hospital Course
79 y/o M, hx of HTN, dementia, shuffling gait with ongoing OP neuro evaluations, ALanny Cole on Eliquis, BPH presented to ER on presenting with fall with R shoulder trauma with finding of right humerus complicated periprosthetic fracture. Patient
underwent reverse total shoulder arthroplasty with explant 04/22. His course was complicated by pre-operative and intra-operative bleeding requiring 2 units PRBC and holding Eliquis.
At time of discharge, patient is off Eliquis. He will resume Eliquis at 2.5mg BID on 04/26 and repeat CBC at SNF on Sunday to determine resuming full dose Eliquis.
He is on midodrine 10mg TID For orthostasis. Losartan was stopped
He will see neurology outpatient for his shuffling gait and frequent falls
He was discharged to SNF on 04/25.
Discharge Plan
-
Patient Disposition: [facility]/SNF
Discharge Diagnosis/Procedures: Traumatic (from mechanical fall) acute R humerus periprosthetic complicated fracture s/p reverse total shoulder arthroplasty with explant 04/22. Orthostatic hypotension.
Condition: Fair
Diet: Low Cholesterol and 2 Gram Sodium
Activity: As tolerated
Additional Activity: use sling while upright and with activities - non weight bearing to operative arm. Range of motion of the elbow, wrist and hand okay.
Driving Restrictions: No driving
Bathing Restrictions: OK to Shower
Blood Work: CBC on Sunday
Other Services: PT and OT
Stand Alone Forms: Total Shoulder Replacement D/C
Referrals:
Missael Sinclair MD [Non-Admitting Privileges, Internal Medicine]
Gucci Castaneda PA-C [Specified Professional Personl, Orthopedics] - 05/06/25 1:45 pm
Referral Note: Office location is [address] [place] [address] [place], [facility] [address] [facility]. Please arrive 10 minutes early for x-rays and planned wound check with suture/skin clip removal.
Ike Mccain MD [Family Provider, Internal Medicine]
Additional Discharge Medication Instructions: Start Eliquis 2.5mg BID on 04/26. if Sunday CBC improved (Hb 8.4 at discharge from hospital), then resume Eliquis full dose (5mg BID)
Prescriptions:
New
midodrine 5 mg Tablet
10 mg PO TID@0800,1200,1800 Qty: 180 0RF
sennosides [Smita-cinthya] 8.6 mg Tablet
17.2 mg PO BID Qty: 60 0RF
acetaminophen 325 mg Tablet
650 mg PO Q4HWA Qty: 100 0RF
polyethylene glycol 3350 17 gram Powder In Packet
17 g PO DAILY Qty: 30 0RF
tamsulosin 0.4 mg Capsule
0.4 mg PO DAILYPRN PRN (Reason: bladder scan volume > 400 mL) Qty: 30 0RF
docusate sodium 100 mg Capsule
100 mg PO BID Qty: 60 0RF
oxycodone 5 mg Tablet
5 mg PO Q4HPRN PRN (Reason: moderate pain) Qty: 10 0RF
Eliquis 2.5 mg tablet
2.5 mg PO BID Qty: 60 0RF
Continued
pravastatin 40 mg Tablet
40 mg PO HS
donepezil 10 mg Tablet
10 mg PO HS
sertraline 100 mg Tablet
100 mg PO DAILY
ferrous sulfate 325 mg (65 mg iron) Tablet
325 mg PO DAILY
metoprolol succinate [Toprol XL] 25 mg Tablet Extended Release 24 Hr
25 mg PO DAILY
finasteride 5 mg Tablet
5 mg PO DAILY
mirabegron [Myrbetriq] 50 mg Tablet Extended Release 24 Hr
50 mg PO DAILY
Discontinued
losartan 50 mg Tablet
50 mg PO DAILY
midodrine 2.5 mg Tablet
2.5 mg PO TID
Eliquis 5 MG tablet
5 mg PO BID
Discharge Orders:
Discharge Patient (As Directed); Ordered 04/25/25
Ordered By: Jian Terry
Discharge Date and Time
Print Language: CHINESE
[2025-04-25] MEDS: NON-FORMULARY ITEM 1 UNIT PO (13:05)
== END 2025-04-25 14:07 | DRG 483 ==
LOC: 2 SOUTH 14:07
PROVIDERS: Internal Medicine Cardiovascular Disease; ADMITTING PHYSICIAN Internal Medicine; ATTENDING PHYSICIAN Internal Medicine; CONSULT PHYSICIAN Nuclear Medicine Nuclear Cardiology; CONSULT PHYSICIAN Orthopaedic Surgery Hand Surgery; EMERGENCY PHYSICIAN Emergency Medicine; FAMILY PHYSICIAN Internal Medicine Geriatric Medicine
PROC: 0RPJ0J6 Removal of Synthetic Substitute from Right Shoulder Joint, Humeral Surface, Open Approach (ICD-10-PCS; 2025-04-22)
PROC: 0PSC04Z Reposition Right Humeral Head with Internal Fixation Device, Open Approach (ICD-10-PCS; 2025-04-22)
PROC: 30233N1 Transfusion of Nonautologous Red Blood Cells into Peripheral Vein, Percutaneous Approach (ICD-10-PCS; 2025-04-22)
PROC: 0RRJ0J6 Replacement of Right Shoulder Joint with Synthetic Substitute, Humeral Surface, Open Approach (ICD-10-PCS; 2025-04-22)
DX: S42.291A Other displaced fracture of upper end of right humerus, initial encounter for closed fracture (principal); E43 Unspecified severe protein-calorie malnutrition; F01.54 Vascular dementia, unspecified severity, with anxiety; M97.31XA Periprosthetic fracture around internal prosthetic right shoulder joint, initial encounter; Z87.891 Personal history of nicotine dependence; I95.1 Orthostatic hypotension; I10 Essential (primary) hypertension; N40.1 Benign prostatic hyperplasia with lower urinary tract symptoms; I48.0 Paroxysmal atrial fibrillation; W01.0XXA Fall on same level from slipping, tripping and stumbling without subsequent striking against object, initial encounter; Z79.01 Long term (current) use of anticoagulants; Z68.26 Body mass index [BMI] 26.0-26.9, adult; R29.6 Repeated falls; Z79.899 Other long term (current) drug therapy; Z91.81 History of falling; Z96.611 Presence of right artificial shoulder joint; Z96.641 Presence of right artificial hip joint; Z96.653 Presence of artificial knee joint, bilateral; Z11.52 Encounter for screening for COVID-19; D64.9 Anemia, unspecified
CPT/HCPCS: 70450; 72125; 73020; 73030; 73060; 73200; 76000; 80048; 81003; 81015; 82533; 84443; 85014; 85018; 85025; 85027; 85730; 86850; 86900; 86901; 86920; 87811; 93005; 93306; 96374; 96375; 96376; 97110; 97163; 97164; 97167; 97168; 97530; 97535; 99285; P9016